=== PATIENT | male | born 1935 | race Caucasian/White ===

== ENCOUNTER 2016-12-05 08:05 | Emergency (ER) | payer MEDICARE ==
[~2016-12-05] VITALS: Ht 170.2 cm; Wt 88.6 kg
[~2016-12-05 08:05] MED LIST: /GLIM2TA PO; /PANT40TA PO; ACET50TA PO; ACTO15TA OR; ASPI81TA3 OR; COUM2.5T17 PO; FERR325T OR; FINA5TAB2 PO; GLUC1000 OR; HYDR25TA6 OR; LISI10TA4 OR; MULTIVIT PO; PERC5TAB12 PO; SIMV20TA2 OR; TERA5CAP3 OR; VITA100T OR; VITA500C OR
[2016-12-05] MEDS ORDERED: ASPIRIN 81 MG CHEW TABLET PO ONE (08:30)
[2016-12-05 08:45] LABS: BASO % 0.4 % (0.0-1.0); EOS # 0.1 10^3/uL (0.0-0.50); EOS % 1.7 % (0.0-3.0); IMMATURE GRANULOCYTE % 0.4 % (0-0); LYMPH # 1.2 10^3/uL (1.5-4.5); LYMPH % 21.7 % (24.0-44.0); MEAN CORPUSCULAR HEMOGLOBIN 31.3 pg (27.0-33.0); MEAN CORPUSCULAR HGB CONC 33.5 g/dl (32.0-36.5); MEAN CORPUSCULAR VOLUME 93.3 fl (80.0-96.0); MONO # 0.4 10^3/uL (0.0-0.8); MONO % 7.5 % (0.0-5.0); NEUTROPHILS # 3.7 10^3/uL (1.8-7.7); NEUTROPHILS % 68.3 % (36.0-66.0); PLATELET COUNT, AUTOMATED 121 10^3/uL (150-450); RED CELL DISTRIBUTION WIDTH 12.9 % (11.5-14.5); WHITE BLOOD COUNT 5.4 10^3/uL (4.0-10.0)
[2016-12-05 08:52] LABS: ADD MANUAL DIFFER NO; DIFF SLIDE NUMBER 120
--- NOTE | 2016-12-05 09:05 | REP ---
Chest x-ray: Two views. History: Chest pain. Comparison chest x-ray December 02, 2015. Findings: EKG monitoring electrodes overlie the chest. The lungs are well inflated and clear. The pleural angles are sharp. Heart size is normal. There are some degenerative changes in the thoracic spine and aorta as before. Impression: No active disease. Signed by Derick Tyson MD 12/05/2016 01:15 P
--- NOTE | 2016-12-05 09:19 | ECGEPIP ---
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
[2016-12-05 09:22] LABS: ANION GAP 6 MEQ/L (8-16); BLOOD UREA NITROGEN 17 MG/DL (7-18); CALCIUM LEVEL 9.6 MG/DL (8.8-10.2); CARBON DIOXIDE LEVEL 30 MEQ/L (21-32); CHLORIDE LEVEL 107 MEQ/L (98-107); CREATININE FOR GFR 1.38 MG/DL (0.70-1.30); GLOMERULAR FILTRATION RATE 52.9 (>42); GLUCOSE, FASTING 103 MG/DL (83-110); POTASSIUM SERUM 4.2 MEQ/L (3.5-5.1); SODIUM LEVEL 143 MEQ/L (136-145)
[2016-12-05 16:15] VITALS: BP 132/60
--- NOTE | 2016-12-05 16:17 | ECGEPIP ---
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
== END 2016-12-05 16:22 | disposition home or self-care (01) ==
LOC: M ED 08:05
DX: R07.9 Chest pain, unspecified (principal); E11.9 Type 2 diabetes mellitus without complications; I10 Essential (primary) hypertension; E78.5 Hyperlipidemia, unspecified; N40.0 Benign prostatic hyperplasia without lower urinary tract symptoms; Z79.899 Other long term (current) drug therapy; Z79.82 Long term (current) use of aspirin; Z79.84 Long term (current) use of oral hypoglycemic drugs; Z88.5 Allergy status to narcotic agent; Z87.891 Personal history of nicotine dependence

== ENCOUNTER → 2017-08-11 | Outpatient (CLI) | payer MEDICARE ==
[2017-08-11 09:04] LABS: SLIDE REVIEW Report; SOURCE PERIPHERAL SMEAR
[2017-08-11 09:05] LABS: REASON FOR REVIEW ANEMIA / RBC MORPH
[2017-08-11 09:09] LABS: BASO % 0.2 % (0.0-1.0); EOS # 0.1 10^3/uL (0.0-0.50); EOS % 3.3 % (0.0-3.0); HEMATOCRIT 33.9 % (42.0-52.0); HEMOGLOBIN 11.2 g/dl (13.5-17.5); IMMATURE GRANULOCYTE % 0.5 % (0-3.0); LYMPH # 1.6 10^3/uL (1.5-4.5); LYMPH % 36.6 % (24.0-44.0); MEAN CORPUSCULAR VOLUME 93.9 fl (80.0-96.0); MONO # 0.4 10^3/uL (0.0-0.8); MONO % 8.6 % (0.0-5.0); NEUTROPHILS # 2.2 10^3/uL (1.8-7.7); NEUTROPHILS % 50.8 % (36.0-66.0); PLATELET COUNT, AUTOMATED 125 10^3/uL (150-450); RED BLOOD COUNT 3.61 10^6/uL (4.30-6.10); RED CELL DISTRIBUTION WIDTH 12.9 % (11.5-14.5); RETIC HEMOGLOBIN EQUIVALENT 35.7 pg (24-36); RETICULOCYTE % 1.7 % (0.5-1.5); WHITE BLOOD COUNT 4.3 10^3/uL (4.0-10.0)
[2017-08-11 09:43] LABS: FERRITIN 178 NG/ML (26-388); IRON (FE) 66 UG/DL (65-175); PERCENT SATURATION 23.7 % (19.7-50.0); TOTAL IRON BINDING CAPACITY 279 UG/DL (250-450)
[2017-08-11 11:57] LABS: VITAMIN B12 LEVEL 655 PG/ML
[2017-08-11 12:00] LABS: FOLATE 12.3 NG/ML
== END ==
LOC: M LAB 07:58
DX: D64.9 Anemia, unspecified (principal)
CPT/HCPCS: 82746

== ENCOUNTER 2019-04-17 11:34 | Emergency (ER) | payer MEDICARE ==
[~2019-04-17] VITALS: Ht 170.2 cm; Wt 89.4 kg
[~2019-04-17 11:34] MED LIST changes: -/GLIM2TA PO; -/PANT40TA PO; -ACET50TA PO; +AMAR1TAB5 PO; +MAPA500T17 PO; +PROT1TAB2 PO
[2019-04-17 12:22] LABS: BASO % 0.2 % (0.0-1.0); EOS # 0.1 10^3/uL (0.0-0.5); EOS % 2.9 % (0.0-3.0); HEMATOCRIT 38.4 % (42.0-52.0); HEMOGLOBIN 12.7 g/dl (13.5-17.5); LYMPH # 1.2 10^3/uL (1.5-5.0); LYMPH % 29.4 % (24.0-44.0); MEAN CORPUSCULAR HEMOGLOBIN 31.8 pg (27.0-33.0); MEAN CORPUSCULAR HGB CONC 33.1 g/dl (32.0-36.5); MEAN CORPUSCULAR VOLUME 96.2 fl (80.0-96.0); MONO # 0.3 10^3/uL (0.0-0.8); MONO % 7.5 % (0.0-5.0); NEUTROPHILS # 2.5 10^3/uL (1.5-8.5); NEUTROPHILS % 59.5 % (36.0-66.0); PLATELET COUNT, AUTOMATED 118 10^3/uL (150-450); RED BLOOD COUNT 3.99 10^6/uL (4.30-6.10); WHITE BLOOD COUNT 4.2 10^3/uL (4.0-10.0)
[2019-04-17] MEDS ORDERED: NS 1,000 ML IV ONE ×2 (12:45→16:45)
[2019-04-17 12:53] LABS: ALBUMIN 4.1 GM/DL (3.2-5.2); BILIRUBIN,DIRECT 0.2 MG/DL (0.0-0.2); BILIRUBIN,TOTAL 0.4 MG/DL (0.2-1.0); TOTAL PROTEIN 7.1 GM/DL (6.4-8.2)
[2019-04-17 15:55] LABS: CREATININE FOR GFR 1.54 MG/DL (0.70-1.30); GLOMERULAR FILTRATION RATE 46.4 (>35)
[2019-04-17] MEDS ORDERED: ISOVUE-370 76% 100ML VIAL (Q9967) As Ordered ONE (15:57)
--- NOTE | 2019-04-17 16:34 | REP ---
Clinical: Acute left lower quadrant pain. Technique: Axial contrast enhanced images from the lung bases to the pubic symphysis with coronal and sagittal re-formations using 100 ml Isovue 370 intravenous contrast material. Comparison: 03/20/2012. Findings: Lung bases demonstrate chronic-appearing changes and mild cardiomegaly. Fatty infiltration to the liver noted along with vague scattered hyperenhancing lesions measuring up to 3 cm which are new compared to prior examination and may represent hemangiomas. A 2.3 cm hypodense lesion in the left lobe remains stable compared to prior examination and may represent cyst or hemangioma. Spleen, pancreas, gallbladder, bilateral adrenal glands are normal. The kidneys demonstrate age-related cortical atrophic changes along with 2 cm and 1.6 cm stable benign right renal cysts. No hydronephrosis noted. The enteric system demonstrates diffuse diverticulosis without acute diverticulitis. Normal terminal ileum and appendix are identified in the right lower quadrant. A moderate periumbilical hernia measuring approximately 5 cm contains mesenteric fat and nonobstructed loop of small bowel. Evaluation of the pelvis is limited due to beam-hardening artifact from left hip prosthesis and marked prostatomegaly with extension into the base of the bladder has increased from prior examination. No ascites. No free air. No adenopathy. Atherosclerotic changes to the aorta and vasculature without aneurysm or dissection. Osseous structures demonstrate degenerative changes. Impression: 1. Hepatic lesions as described above likely representing hemangiomas and/or cyst. Consider follow-up ultrasound examination for confirmation. 2. Diverticulosis without acute diverticulitis. 3. Periumbilical hernia containing mesenteric fat and nonobstructed small bowel. 4. Marked prostatomegaly with mass effect/extension into the base of the bladder increased from prior examination. 5. Further nonacute findings as above. Electronically Signed by Mars Brown MD 04/17/2019 04:26 P
[2019-04-17 18:09] VITALS: BP 162/72
--- NOTE | 2019-04-18 07:11 | ED PDOC ---
Post-Departure Follow-Up radiology rpeort faxed to Carmen Flores MD Apr 18, 2019 07:11
== END 2019-04-17 18:10 | disposition home or self-care (01) ==
LOC: M ED 11:34
DX: E86.0 Dehydration (principal); E11.9 Type 2 diabetes mellitus without complications; I10 Essential (primary) hypertension; E78.5 Hyperlipidemia, unspecified; N40.0 Benign prostatic hyperplasia without lower urinary tract symptoms; Z79.899 Other long term (current) drug therapy; Z79.84 Long term (current) use of oral hypoglycemic drugs; Z88.5 Allergy status to narcotic agent; Z87.891 Personal history of nicotine dependence
CPT/HCPCS: 74177; 80047; 80076; 81001; 82565; 83690; 84520; 85025; 96360; 96361; 99284; Q9967

== ENCOUNTER → 2021-10-05 | Outpatient (CLI) | payer MEDICARE ==
[~2021-10-05] MED LIST changes: +CYAN500T14 PO; +FERR325T3 PO; +GLIM2TAB4 PO; +LISI10TA22 PO; +METF500T13 PO; +SIMV20TA22 PO; +TERA10CA3 PO; +VITA-243 PO; +VITMTA PO
== END ==
LOC: M LABSMTC 11:22
PROVIDERS: ATTEND Anesthesiology
DX: Z11.52 Encounter for screening for COVID-19 (principal)

== ENCOUNTER 2021-10-08 07:31 | Day surgery (SDC) | payer MEDICARE ==
[~2021-10-08] VITALS: Ht 167.6 cm; Wt 90.8 kg
[~2021-10-08 07:31] MED LIST changes: +BSS IRR 500ML/OMIDRIA 4ML IRR BAG (OR ONLY) As Ordered ONE; +CEFUROXIME 1MG/0.1ML INTRACAMERAL INJ As Ordered ONE; +LIDOCAINE 1% SDV 5ML VIAL As Ordered ONE; +PROPARACAINE 0.5% OPHTH SOL 15ML OS ONE
[2021-10-08] MEDS: TROPICAMIDE 1% OPHTH SOLN 2ML OS SCH ×2 (08:01→08:28)
[2021-10-08] MEDS: OFLOXACIN 0.3 % (OCUFLOX) OPTH SOL 5ML OS SCH ×2 (08:01→08:28)
[2021-10-08] MEDS: PHENYLEPHRINE 2.5% OPHTH SOL 2ML OS SCH ×2 (08:01→08:28)
[2021-10-08] MEDS ORDERED: fentaNYL 100 MCG/2 ML INJECTION As Ordered ONE (09:30)
[2021-10-08] MEDS ORDERED: MIDAZOLAM INJ 2MG/2ML VIAL (J2250 PER 1MG) As Ordered ONE (09:30)
[2021-10-08] MEDS ORDERED: ePHEDrine SULFATE 25 MG/5 ML(5MG/ML) SYRINGE As Ordered ONE (10:02)
[2021-10-08 11:10] VITALS: BP 149/69
== END 2021-10-08 11:15 | disposition home or self-care (01) ==
LOC: M SDC 07:31
PROVIDERS: ATTEND Ophthalmology
DX: H25.12 Age-related nuclear cataract, left eye (principal); I10 Essential (primary) hypertension; E78.5 Hyperlipidemia, unspecified; E11.9 Type 2 diabetes mellitus without complications; N40.0 Benign prostatic hyperplasia without lower urinary tract symptoms; Z79.899 Other long term (current) drug therapy; Z88.5 Allergy status to narcotic agent; Z79.84 Long term (current) use of oral hypoglycemic drugs
CPT/HCPCS: 66984; J0697; J1097; J2250; J3010; V2632

== ENCOUNTER → 2021-11-23 | Outpatient (CLI) | payer MEDICARE ==
[~2021-11-23] MED LIST changes: -BSS IRR 500ML/OMIDRIA 4ML IRR BAG (OR ONLY) As Ordered ONE; -CEFUROXIME 1MG/0.1ML INTRACAMERAL INJ As Ordered ONE; -LIDOCAINE 1% SDV 5ML VIAL As Ordered ONE; -PROPARACAINE 0.5% OPHTH SOL 15ML OS ONE
== END ==
LOC: M LABSMTC 09:33
PROVIDERS: ATTEND Anesthesiology
DX: Z11.52 Encounter for screening for COVID-19 (principal)

== ENCOUNTER 2021-11-26 06:16 | Day surgery (SDC) | payer MEDICARE ==
[~2021-11-26] VITALS: Ht 170.2 cm; Wt 89.8 kg
[~2021-11-26 06:16] MED LIST changes: +OFLOXACIN 0.3 % (OCUFLOX) OPTH SOL 5ML OD SCH; +PHENYLEPHRINE 2.5% OPHTH SOL 2ML OD SCH; +PROPARACAINE 0.5% OPHTH SOL 15ML OD ONE; +TROPICAMIDE 1% OPHTH SOLN 2ML OD SCH
[2021-11-26] MEDS ORDERED: LIDOCAINE 1% SDV 5ML VIAL As Ordered ONE (06:29)
[2021-11-26] MEDS ORDERED: CEFUROXIME 1MG/0.1ML INTRACAMERAL INJ As Ordered ONE (06:31)
[2021-11-26] MEDS ORDERED: BSS IRR 500ML/OMIDRIA 4ML IRR BAG (OR ONLY) As Ordered ONE (06:44)
[2021-11-26] MEDS ORDERED: fentaNYL 100 MCG/2 ML INJECTION As Ordered ONE (07:32)
[2021-11-26] MEDS ORDERED: MIDAZOLAM INJ 2MG/2ML VIAL (J2250 PER 1MG) As Ordered ONE (07:32)
[2021-11-26 07:58] VITALS: BP 113/59
== END 2021-11-26 08:14 | disposition home or self-care (01) ==
LOC: M SDC 06:16
PROVIDERS: ATTEND Ophthalmology
DX: H25.11 Age-related nuclear cataract, right eye (principal); Z88.5 Allergy status to narcotic agent
CPT/HCPCS: 66984; J0697; J1097; J2250; J3010; V2632

== ENCOUNTER 2021-12-09 19:48 | Emergency (ER) | payer MEDICARE ==
[~2021-12-09] VITALS: Ht 170.2 cm; Wt 43.2 kg
[~2021-12-09 19:48] MED LIST changes: -OFLOXACIN 0.3 % (OCUFLOX) OPTH SOL 5ML OD SCH; -PHENYLEPHRINE 2.5% OPHTH SOL 2ML OD SCH; -PROPARACAINE 0.5% OPHTH SOL 15ML OD ONE; -TROPICAMIDE 1% OPHTH SOLN 2ML OD SCH
[2021-12-09 20:40] LABS: BASO % 0.3 % (0.0-1.0); EOS # 0.1 10^3/uL (0.0-0.5); EOS % 2.1 % (0.0-3.0); HEMATOCRIT 34.7 % (42.0-52.0); HEMOGLOBIN 11.4 g/dl (13.5-17.5); LYMPH # 0.6 10^3/uL (1.5-5.0); LYMPH % 19.3 % (24.0-44.0); MEAN CORPUSCULAR HEMOGLOBIN 32.5 pg (27.0-33.0); MEAN CORPUSCULAR HGB CONC 32.9 g/dl (32.0-36.5); MEAN CORPUSCULAR VOLUME 98.9 fl (80.0-96.0); MONO # 0.3 10^3/uL (0.0-0.8); NEUTROPHILS # 2.3 10^3/uL (1.5-8.5); PLATELET COUNT, AUTOMATED 112 10^3/uL (150-450); RED BLOOD COUNT 3.51 10^6/uL (4.30-6.10); WHITE BLOOD COUNT 3.3 10^3/uL (4.0-10.0)
[2021-12-09 21:11] LABS: ALBUMIN 3.3 GM/DL (3.2-5.2); BILIRUBIN,DIRECT 0.2 MG/DL (0.0-0.2); BILIRUBIN,TOTAL 0.5 MG/DL (0.2-1.0); CALCIUM LEVEL 8.8 MG/DL (8.8-10.2); CREATININE FOR GFR 1.92 MG/DL (0.70-1.30); GLOMERULAR FILTRATION RATE 35.7 (>35); POTASSIUM SERUM 4.7 MEQ/L (3.5-5.1); TOTAL PROTEIN 6.7 GM/DL (6.4-8.2)
[2021-12-09 21:19] LABS: CPK CREATINE PHOSPHOKINASE 169 U/L (39-308)
[2021-12-09] MEDS: GASTROGRAFIN SOLUTION 30ML PO SCH ×2 (21:40→22:18)
[2021-12-09 22:32] LABS: CPK CREATINE PHOSPHOKINASE 155 U/L (39-308)
[2021-12-09] MEDS ORDERED: GI COCKTAIL 50ML BTL(HYOSCYAMINE/MAALOX/LIDOCAINE VISCOUS)(1:3:1) PO ONE (23:35)
[2021-12-09 23:41] VITALS: BP 169/79
[2021-12-10] MEDS ORDERED: AUGMENTIN 500MG TAB PO ONE (01:15)
[2021-12-10] MEDS ORDERED: AUGM500T34 PO (01:16)
[2021-12-10 01:57] VITALS: BP 147/73
== END 2021-12-10 01:59 | disposition home or self-care (01) ==
LOC: M ED 19:48
DX: R07.9 Chest pain, unspecified (principal); R10.9 Unspecified abdominal pain; J43.9 Emphysema, unspecified; R91.8 Other nonspecific abnormal finding of lung field; K57.32 Diverticulitis of large intestine without perforation or abscess without bleeding; I11.9 Hypertensive heart disease without heart failure; I25.119 Atherosclerotic heart disease of native coronary artery with unspecified angina pectoris; I77.819 Aortic ectasia, unspecified site; Z79.84 Long term (current) use of oral hypoglycemic drugs; E78.5 Hyperlipidemia, unspecified; K21.9 Gastro-esophageal reflux disease without esophagitis; N18.9 Chronic kidney disease, unspecified; Z88.5 Allergy status to narcotic agent
CPT/HCPCS: 36415; 71045; 71250; 74176; 80047; 80048; 80076; 82550; 83690; 83880; 84484; 85025; 93005; 93041; 94760; 99285; Q9963

== ENCOUNTER → 2022-01-24 | Outpatient (CLI) | payer MEDICARE ==
[~2022-01-24] MED LIST changes: +AUGM500T34 PO
== END ==
LOC: M PLAIMG 13:03
PROVIDERS: ATTEND Family Medicine
DX: K57.30 Diverticulosis of large intestine without perforation or abscess without bleeding (principal); R16.1 Splenomegaly, not elsewhere classified; N28.1 Cyst of kidney, acquired; R18.8 Other ascites

== ENCOUNTER 2022-02-15 10:31 | Inpatient (IN) | payer MEDICARE ==
[~2022-02-15] VITALS: Ht 170.2 cm; Wt 89.2 kg
[2022-02-15] MEDS ORDERED: JARD1TAB PO (10:43)
[2022-02-15] MEDS ORDERED: NS 500 ML IV ONE (12:45)
[2022-02-15 13:01] LABS: RSV AMPLIFICATION NEGATIVE (NEGATIVE)
[2022-02-15 13:23] LABS: BASO % 0.3 % (0.0-1.0); EOS # 0.1 10^3/uL (0.0-0.5); EOS % 1.4 % (0.0-3.0); HEMATOCRIT 36.1 % (42.0-52.0); HEMOGLOBIN 11.1 g/dl (13.5-17.5); LYMPH # 0.4 10^3/uL (1.5-5.0); LYMPH % 12.5 % (24.0-44.0); MEAN CORPUSCULAR HEMOGLOBIN 30.1 pg (27.0-33.0); MEAN CORPUSCULAR HGB CONC 30.7 g/dl (32.0-36.5); MEAN CORPUSCULAR VOLUME 97.8 fl (80.0-96.0); MONO # 0.3 10^3/uL (0.0-0.8); MONO % 8.2 % (2.0-8.0); NEUTROPHILS # 2.7 10^3/uL (1.5-8.5); PLATELET COUNT, AUTOMATED 153 10^3/uL (150-450); RED BLOOD COUNT 3.69 10^6/uL (4.30-6.10); WHITE BLOOD COUNT 3.5 10^3/uL (4.0-10.0)
[2022-02-15 13:46] LABS: CK-MB VALUE MASS 1.6 NG/ML (<3.6)
[2022-02-15 13:47] LABS: ALBUMIN 2.7 G/DL (3.2-5.2); BILIRUBIN,DIRECT 0.4 MG/DL (<0.4); BILIRUBIN,TOTAL 0.7 MG/DL (0.3-1.2); CALCIUM LEVEL 8.4 MG/DL (8.3-10.6); CREATININE FOR GFR 1.78 MG/DL (0.70-1.30); MB/CK RELATIVE INDEX 1.26 (< OR =4); POTASSIUM SERUM 4.4 MMOL/L (3.5-5.1); TOTAL PROTEIN 6.2 G/DL (5.7-8.2)
[2022-02-15] MEDS ORDERED: ISOVUE-370 76% 100ML VIAL As Ordered ONE (13:59)
[2022-02-15] MEDS ORDERED: NS 1,000 ML IV ONE (14:00)
[2022-02-15] MEDS ORDERED: VANCOMYCIN ORAL SOL 250MG/5ML ORAL SYRINGE PO ONE (15:55)
[2022-02-15 16:08] LABS: CK-MB VALUE MASS 1.4 NG/ML (<3.6)
[2022-02-15 16:09] LABS: MB/CK RELATIVE INDEX 1.25 (< OR =4)
[2022-02-15 17:22] LABS: INR 1.23; PROTHROMBIN TIME 15.8 SECONDS (12.5-14.5)
[2022-02-15] MEDS: INSULIN LISPRO (NovoLOG) PER UNIT SC SCH ×2 (17:30→21:00)
[2022-02-15] MEDS ORDERED: DEXTROSE 50% 50ML SYRINGE IV PRN (17:45)
[2022-02-15] MEDS ORDERED: GLUCAGON INJ 1MG VIAL SC PRN (17:45)
[2022-02-15] MEDS ORDERED: GLUCOSE 4GM CHEW TABLET PO PRN (17:45)
[2022-02-15] MEDS ORDERED: HOME MED LIST COMPLETE! XX SCH (18:05)
[2022-02-15] MEDS ORDERED: TOUJ1.2I SC (18:05)
[2022-02-15 19:17] LABS: CK-MB VALUE MASS 1.4 NG/ML (<3.6)
[2022-02-15 19:19] LABS: MB/CK RELATIVE INDEX 1.23 (< OR =4)
[2022-02-15 19:39] LABS: HEPATITIS B SURFACE ANTIGEN NEGATIVE (NEGATIVE)
[2022-02-15 19:59] LABS: HEPATITIS C VIRUS ABY INDEX 0.1 INDEX (<0.8)
[2022-02-15 20:00] LABS: HEPATITIS B CORE ANTIBODY IGM NEGATIVE (NEGATIVE)
[2022-02-15] MEDS: ASCORBIC ACID 500 MG TAB PO SCH (21:58)
[2022-02-15] MEDS: CYANOCOBALAMIN 500 MCG TAB PO SCH (21:58)
[2022-02-15] MEDS: FERROUS SULFATE 325MG TAB PO SCH (21:59)
[2022-02-15] MEDS: SIMVASTATIN 20 MG TAB PO SCH (21:59)
[2022-02-15 23:47] VITALS: BP 146/85
[2022-02-16] MEDS: TERAZOSIN 5MG CAPSULE PO SCH ×2 (00:12→20:12)
[2022-02-16] MEDS: VANCOMYCIN ORAL SOL 250MG/5ML ORAL SYRINGE PO SCH ×5 (00:38→23:40)
[2022-02-16] MEDS ORDERED: NYSTATIN 100,000 UNITS/GM TOPICAL PWD 15GM TOP PRN (00:45)
[2022-02-16 04:40] VITALS: BP 107/69
[2022-02-16 06:16] LABS: HEMATOCRIT 34.8 % (42.0-52.0); MEAN CORPUSCULAR HEMOGLOBIN 30.3 pg (27.0-33.0); MEAN CORPUSCULAR HGB CONC 31.6 g/dl (32.0-36.5); MEAN CORPUSCULAR VOLUME 95.9 fl (80.0-96.0); PLATELET COUNT, AUTOMATED 161 10^3/uL (150-450); RED BLOOD COUNT 3.63 10^6/uL (4.30-6.10); WHITE BLOOD COUNT 3.7 10^3/uL (4.0-10.0)
[2022-02-16 06:28] LABS: ALBUMIN 2.4 G/DL (3.2-5.2); BILIRUBIN,TOTAL 0.6 MG/DL (0.3-1.2); CALCIUM LEVEL 8.4 MG/DL (8.3-10.6); CREATININE FOR GFR 1.64 MG/DL (0.70-1.30); GLOMERULAR FILTRATION RATE 42.8 (>35); POTASSIUM SERUM 4.2 MMOL/L (3.5-5.1); TOTAL PROTEIN 5.8 G/DL (5.7-8.2)
[2022-02-16] MEDS: INSULIN LISPRO (NovoLOG) PER UNIT SC SCH ×4 (07:30→20:04)
[2022-02-16] MEDS: LACTOBACILLUS ACIDOPHILUS CAP (BACID) PO SCH (09:52)
[2022-02-16] MEDS: FERROUS SULFATE 325MG TAB PO SCH ×2 (09:53→20:13)
[2022-02-16] MEDS: ASCORBIC ACID 500 MG TAB PO SCH ×2 (09:53→20:13)
[2022-02-16] MEDS: FINASTERIDE 5MG TAB PO SCH (09:53)
[2022-02-16] MEDS: MULTIVITAMINS/MINERALS THERAP 1 TAB PO SCH (09:53)
[2022-02-16] MEDS: CYANOCOBALAMIN 500 MCG TAB PO SCH ×2 (09:53→20:13)
[2022-02-16 14:00] VITALS: BP 108/62
[2022-02-16 17:39] LABS: APPEARANCE, BODY FLUID HAZY (CLEAR); ASCITES FL COLOR PALE YELLOW (COLORLESS); SOURCE, BODY FLUID ASCITES
[2022-02-16 17:45] LABS: SOURCE, BODY FLUID ALBUMIN ASCITES
[2022-02-16 17:50] LABS: SOURCE, BODY FLUID GLUCOSE ASCITES
[2022-02-16 17:52] LABS: SOURCE, BODY FLUID TOT PROTEIN ASCITES; TOTAL PROTEIN, BODY FLUID < 2.0 G/DL (NOT ESTABLISHED)
[2022-02-16 20:00] VITALS: BP 114/68
[2022-02-16] MEDS: SIMVASTATIN 20 MG TAB PO SCH (20:13)
[2022-02-17] MEDS: VANCOMYCIN ORAL SOL 250MG/5ML ORAL SYRINGE PO SCH ×3 (05:24→17:55)
[2022-02-17 06:16] VITALS: BP 113/68
[2022-02-17 06:37] LABS: BASO % 0.3 % (0.0-1.0); EOS # 0.1 10^3/uL (0.0-0.5); EOS % 3.5 % (0.0-3.0); HEMATOCRIT 32.8 % (42.0-52.0); HEMOGLOBIN 10.4 g/dl (13.5-17.5); LYMPH # 0.5 10^3/uL (1.5-5.0); LYMPH % 16.2 % (24.0-44.0); MEAN CORPUSCULAR HGB CONC 31.7 g/dl (32.0-36.5); MEAN CORPUSCULAR VOLUME 94.5 fl (80.0-96.0); MONO # 0.3 10^3/uL (0.0-0.8); MONO % 9.8 % (2.0-8.0); NEUTROPHILS # 2.2 10^3/uL (1.5-8.5); NEUTROPHILS % 69.6 % (36.0-66.0); PLATELET COUNT, AUTOMATED 149 10^3/uL (150-450); RED BLOOD COUNT 3.47 10^6/uL (4.30-6.10); WHITE BLOOD COUNT 3.2 10^3/uL (4.0-10.0)
[2022-02-17 07:01] LABS: MAGNESIUM LEVEL 1.9 MG/DL (1.8-2.4)
[2022-02-17 07:03] LABS: ALBUMIN 2.3 G/DL (3.2-5.2); BILIRUBIN,TOTAL 0.5 MG/DL (0.3-1.2); CALCIUM LEVEL 8.2 MG/DL (8.3-10.6); CREATININE FOR GFR 1.56 MG/DL (0.70-1.30); GLOMERULAR FILTRATION RATE 45.4 (>35); POTASSIUM SERUM 3.8 MMOL/L (3.5-5.1); TOTAL PROTEIN 5.3 G/DL (5.7-8.2)
[2022-02-17] MEDS: INSULIN LISPRO (NovoLOG) PER UNIT SC SCH ×4 (10:00→20:30)
[2022-02-17] MEDS: LACTOBACILLUS ACIDOPHILUS CAP (BACID) PO SCH (10:01)
[2022-02-17] MEDS: MULTIVITAMINS/MINERALS THERAP 1 TAB PO SCH (10:01)
[2022-02-17] MEDS: ASCORBIC ACID 500 MG TAB PO SCH ×2 (10:01→21:16)
[2022-02-17] MEDS: CYANOCOBALAMIN 500 MCG TAB PO SCH ×2 (10:01→21:16)
[2022-02-17] MEDS: FERROUS SULFATE 325MG TAB PO SCH ×2 (10:01→21:21)
[2022-02-17] MEDS: FINASTERIDE 5MG TAB PO SCH (10:01)
[2022-02-17] MEDS ORDERED: VANC1CAP6 PO (12:08)
[2022-02-17] MEDS: FUROSEMIDE 20 MG TAB PO SCH ×2 (12:44→17:54)
[2022-02-17] MEDS: SPIRONOLACTONE 25 MG TAB PO SCH ×2 (12:44→17:54)
[2022-02-17 15:00] VITALS: BP 112/67
[2022-02-17] MEDS: OCTREOTIDE ACETATE 100MCG/ML VIAL **SC ADMINISTRATION ONLY SC SCH ×2 (16:00→21:21)
[2022-02-17] MEDS: SIMVASTATIN 20 MG TAB PO SCH (21:16)
[2022-02-17 21:17] VITALS: BP 103/63
[2022-02-17] MEDS: TERAZOSIN 5MG CAPSULE PO SCH (21:18)
[2022-02-18] MEDS: VANCOMYCIN ORAL SOL 250MG/5ML ORAL SYRINGE PO SCH ×5 (00:08→23:26)
[2022-02-18] MEDS: OCTREOTIDE ACETATE 100MCG/ML VIAL **SC ADMINISTRATION ONLY SC SCH ×3 (05:48→21:03)
[2022-02-18 05:50] VITALS: BP 102/66
[2022-02-18 06:45] LABS: EOS # 0.1 10^3/uL (0.0-0.5); EOS % 3.1 % (0.0-3.0); HEMATOCRIT 33.2 % (42.0-52.0); HEMOGLOBIN 10.5 g/dl (13.5-17.5); LYMPH # 0.6 10^3/uL (1.5-5.0); LYMPH % 19.5 % (24.0-44.0); MEAN CORPUSCULAR HEMOGLOBIN 30.3 pg (27.0-33.0); MEAN CORPUSCULAR HGB CONC 31.6 g/dl (32.0-36.5); MONO # 0.3 10^3/uL (0.0-0.8); MONO % 10.1 % (2.0-8.0); NEUTROPHILS # 1.9 10^3/uL (1.5-8.5); PLATELET COUNT, AUTOMATED 147 10^3/uL (150-450); RED BLOOD COUNT 3.46 10^6/uL (4.30-6.10); WHITE BLOOD COUNT 2.9 10^3/uL (4.0-10.0)
[2022-02-18 07:02] LABS: MAGNESIUM LEVEL 1.9 MG/DL (1.8-2.4)
[2022-02-18 07:04] LABS: ALBUMIN 2.6 G/DL (3.2-5.2); BILIRUBIN,TOTAL 0.7 MG/DL (0.3-1.2); CREATININE FOR GFR 1.79 MG/DL (0.70-1.30); GLOMERULAR FILTRATION RATE 38.7 (>35); POTASSIUM SERUM 4.2 MMOL/L (3.5-5.1); TOTAL PROTEIN 5.4 G/DL (5.7-8.2)
[2022-02-18] MEDS: INSULIN LISPRO (NovoLOG) PER UNIT SC SCH ×4 (08:38→20:51)
[2022-02-18] MEDS: CYANOCOBALAMIN 500 MCG TAB PO SCH ×2 (08:39→21:02)
[2022-02-18] MEDS: ASCORBIC ACID 500 MG TAB PO SCH ×2 (08:39→21:03)
[2022-02-18] MEDS: FERROUS SULFATE 325MG TAB PO SCH ×2 (08:39→21:03)
[2022-02-18] MEDS: LACTOBACILLUS ACIDOPHILUS CAP (BACID) PO SCH (08:39)
[2022-02-18] MEDS: FUROSEMIDE 20 MG TAB PO SCH ×2 (08:39→17:23)
[2022-02-18] MEDS: SPIRONOLACTONE 25 MG TAB PO SCH ×2 (08:40→17:23)
[2022-02-18] MEDS: MULTIVITAMINS/MINERALS THERAP 1 TAB PO SCH (08:40)
[2022-02-18] MEDS: FINASTERIDE 5MG TAB PO SCH (08:41)
[2022-02-18] MEDS ORDERED: LIDOCAINE 1% MDV 20ML VIAL As Ordered ONE (11:19)
[2022-02-18 14:00] VITALS: BP 106/66
[2022-02-18 20:00] VITALS: BP 103/65
[2022-02-18] MEDS: TERAZOSIN 5MG CAPSULE PO SCH (21:00)
[2022-02-18] MEDS: SIMVASTATIN 20 MG TAB PO SCH (21:03)
[2022-02-19] MEDS: VANCOMYCIN ORAL SOL 250MG/5ML ORAL SYRINGE PO SCH ×3 (05:50→18:07)
[2022-02-19] MEDS: OCTREOTIDE ACETATE 100MCG/ML VIAL **SC ADMINISTRATION ONLY SC SCH ×3 (05:54→21:15)
[2022-02-19 06:00] VITALS: BP 110/66
[2022-02-19 07:51] LABS: EOS # 0.1 10^3/uL (0.0-0.5); EOS % 2.7 % (0.0-3.0); HEMATOCRIT 35.8 % (42.0-52.0); HEMOGLOBIN 11.4 g/dl (13.5-17.5); LYMPH # 0.7 10^3/uL (1.5-5.0); LYMPH % 22.6 % (24.0-44.0); MEAN CORPUSCULAR HEMOGLOBIN 30.3 pg (27.0-33.0); MEAN CORPUSCULAR HGB CONC 31.8 g/dl (32.0-36.5); MEAN CORPUSCULAR VOLUME 95.2 fl (80.0-96.0); MONO # 0.3 10^3/uL (0.0-0.8); MONO % 9.3 % (2.0-8.0); NEUTROPHILS % 65.1 % (36.0-66.0); PLATELET COUNT, AUTOMATED 141 10^3/uL (150-450); RED BLOOD COUNT 3.76 10^6/uL (4.30-6.10)
[2022-02-19 07:59] LABS: MAGNESIUM LEVEL 1.9 MG/DL (1.8-2.4)
[2022-02-19] MEDS: CYANOCOBALAMIN 500 MCG TAB PO SCH ×2 (08:13→21:15)
[2022-02-19] MEDS: MULTIVITAMINS/MINERALS THERAP 1 TAB PO SCH (08:13)
[2022-02-19] MEDS: ASCORBIC ACID 500 MG TAB PO SCH ×2 (08:15→21:15)
[2022-02-19] MEDS: FERROUS SULFATE 325MG TAB PO SCH ×2 (08:15→21:15)
[2022-02-19] MEDS: LACTOBACILLUS ACIDOPHILUS CAP (BACID) PO SCH (08:16)
[2022-02-19] MEDS: FINASTERIDE 5MG TAB PO SCH (08:16)
[2022-02-19 08:20] VITALS: BP 97/53
[2022-02-19 08:29] LABS: ALBUMIN 2.7 G/DL (3.2-5.2); BILIRUBIN,TOTAL 0.8 MG/DL (0.3-1.2); CALCIUM LEVEL 8.2 MG/DL (8.3-10.6); CREATININE FOR GFR 1.91 MG/DL (0.70-1.30); GLOMERULAR FILTRATION RATE 35.9 (>35); POTASSIUM SERUM 3.8 MMOL/L (3.5-5.1); TOTAL PROTEIN 5.8 G/DL (5.7-8.2)
[2022-02-19] MEDS: FUROSEMIDE 20 MG TAB PO SCH ×2 (08:42→18:06)
[2022-02-19] MEDS: INSULIN LISPRO (NovoLOG) PER UNIT SC SCH ×4 (08:42→21:00)
[2022-02-19] MEDS: SPIRONOLACTONE 25 MG TAB PO SCH ×2 (08:42→17:00)
[2022-02-19 20:00] VITALS: BP 120/78
[2022-02-19] MEDS: SIMVASTATIN 20 MG TAB PO SCH (21:15)
[2022-02-19 21:16] VITALS: BP 119/77
[2022-02-19] MEDS: TERAZOSIN 5MG CAPSULE PO SCH (21:37)
[2022-02-20] MEDS: VANCOMYCIN ORAL SOL 250MG/5ML ORAL SYRINGE PO SCH ×4 (00:20→19:29)
[2022-02-20] MEDS: OCTREOTIDE ACETATE 100MCG/ML VIAL **SC ADMINISTRATION ONLY SC SCH ×3 (05:31→20:49)
[2022-02-20 06:00] VITALS: BP 104/58
[2022-02-20 06:35] LABS: BASO % 0.3 % (0.0-1.0); EOS # 0.1 10^3/uL (0.0-0.5); EOS % 2.8 % (0.0-3.0); HEMATOCRIT 34.4 % (42.0-52.0); HEMOGLOBIN 10.9 g/dl (13.5-17.5); LYMPH # 0.7 10^3/uL (1.5-5.0); LYMPH % 19.8 % (24.0-44.0); MEAN CORPUSCULAR HEMOGLOBIN 29.5 pg (27.0-33.0); MEAN CORPUSCULAR HGB CONC 31.7 g/dl (32.0-36.5); MEAN CORPUSCULAR VOLUME 93.2 fl (80.0-96.0); MONO # 0.3 10^3/uL (0.0-0.8); MONO % 9.5 % (2.0-8.0); NEUTROPHILS # 2.4 10^3/uL (1.5-8.5); NEUTROPHILS % 67.3 % (36.0-66.0); PLATELET COUNT, AUTOMATED 144 10^3/uL (150-450); RED BLOOD COUNT 3.69 10^6/uL (4.30-6.10); WHITE BLOOD COUNT 3.6 10^3/uL (4.0-10.0)
[2022-02-20 07:04] LABS: MAGNESIUM LEVEL 1.7 MG/DL (1.8-2.4)
[2022-02-20 07:11] LABS: ALBUMIN 2.5 G/DL (3.2-5.2); BILIRUBIN,TOTAL 0.7 MG/DL (0.3-1.2); CREATININE FOR GFR 1.97 MG/DL (0.70-1.30); GLOMERULAR FILTRATION RATE 34.7 (>35); POTASSIUM SERUM 3.9 MMOL/L (3.5-5.1); TOTAL PROTEIN 5.4 G/DL (5.7-8.2)
[2022-02-20] MEDS ORDERED: MAGNESIUM OXIDE 400MG TAB (MAG-OX) PO ONE (07:35)
[2022-02-20 08:28] VITALS: BP 86/62
[2022-02-20] MEDS: LACTOBACILLUS ACIDOPHILUS CAP (BACID) PO SCH (08:29)
[2022-02-20] MEDS: FERROUS SULFATE 325MG TAB PO SCH ×2 (08:29→20:44)
[2022-02-20] MEDS: MULTIVITAMINS/MINERALS THERAP 1 TAB PO SCH (08:29)
[2022-02-20] MEDS: FINASTERIDE 5MG TAB PO SCH (08:29)
[2022-02-20] MEDS: CYANOCOBALAMIN 500 MCG TAB PO SCH ×2 (08:29→20:44)
[2022-02-20] MEDS: ASCORBIC ACID 500 MG TAB PO SCH ×2 (08:29→20:44)
[2022-02-20] MEDS: SPIRONOLACTONE 25 MG TAB PO SCH (08:58)
[2022-02-20] MEDS: FUROSEMIDE 20 MG TAB PO SCH (09:10)
[2022-02-20] MEDS: MIDODRINE 2.5 MG TAB PO SCH ×2 (09:10→14:12)
[2022-02-20] MEDS: INSULIN LISPRO (NovoLOG) PER UNIT SC SCH ×4 (10:48→20:20)
[2022-02-20 10:51] VITALS: BP 94/54
[2022-02-20 14:00] VITALS: BP 118/66
[2022-02-20 20:00] VITALS: BP 116/65
[2022-02-20 20:44] VITALS: BP 116/65
[2022-02-20] MEDS: SIMVASTATIN 20 MG TAB PO SCH (20:44)
[2022-02-20] MEDS: TERAZOSIN 5MG CAPSULE PO SCH (20:44)
[2022-02-21] MEDS: VANCOMYCIN ORAL SOL 250MG/5ML ORAL SYRINGE PO SCH ×5 (00:24→23:09)
[2022-02-21 06:00] VITALS: BP 115/67
[2022-02-21 06:13] LABS: BASO % 0.3 % (0.0-1.0); EOS # 0.1 10^3/uL (0.0-0.5); EOS % 2.9 % (0.0-3.0); HEMATOCRIT 36.2 % (42.0-52.0); HEMOGLOBIN 11.6 g/dl (13.5-17.5); LYMPH # 0.9 10^3/uL (1.5-5.0); LYMPH % 23.8 % (24.0-44.0); MEAN CORPUSCULAR HEMOGLOBIN 29.8 pg (27.0-33.0); MEAN CORPUSCULAR VOLUME 93.1 fl (80.0-96.0); MONO # 0.4 10^3/uL (0.0-0.8); MONO % 9.2 % (2.0-8.0); NEUTROPHILS # 2.4 10^3/uL (1.5-8.5); NEUTROPHILS % 63.5 % (36.0-66.0); PLATELET COUNT, AUTOMATED 141 10^3/uL (150-450); RED BLOOD COUNT 3.89 10^6/uL (4.30-6.10); WHITE BLOOD COUNT 3.8 10^3/uL (4.0-10.0)
[2022-02-21] MEDS: OCTREOTIDE ACETATE 100MCG/ML VIAL **SC ADMINISTRATION ONLY SC SCH ×3 (06:27→23:08)
[2022-02-21 06:33] LABS: MAGNESIUM LEVEL 1.9 MG/DL (1.8-2.4)
[2022-02-21 06:35] LABS: ALBUMIN 2.6 G/DL (3.2-5.2); BILIRUBIN,TOTAL 0.8 MG/DL (0.3-1.2); CALCIUM LEVEL 8.1 MG/DL (8.3-10.6); CREATININE FOR GFR 2.12 MG/DL (0.70-1.30); GLOMERULAR FILTRATION RATE 31.8 (>35); POTASSIUM SERUM 3.9 MMOL/L (3.5-5.1); TOTAL PROTEIN 5.6 G/DL (5.7-8.2)
[2022-02-21] MEDS: MIDODRINE 2.5 MG TAB PO SCH ×2 (09:06→15:16)
[2022-02-21] MEDS: INSULIN LISPRO (NovoLOG) PER UNIT SC SCH ×4 (09:07→20:10)
[2022-02-21] MEDS: LACTOBACILLUS ACIDOPHILUS CAP (BACID) PO SCH (09:07)
[2022-02-21] MEDS: FINASTERIDE 5MG TAB PO SCH (09:07)
[2022-02-21] MEDS: MULTIVITAMINS/MINERALS THERAP 1 TAB PO SCH (09:07)
[2022-02-21] MEDS: FERROUS SULFATE 325MG TAB PO SCH ×2 (09:07→20:16)
[2022-02-21] MEDS: ASCORBIC ACID 500 MG TAB PO SCH ×2 (09:07→20:16)
[2022-02-21] MEDS: CYANOCOBALAMIN 500 MCG TAB PO SCH ×2 (09:07→20:16)
[2022-02-21] MEDS: HEPARIN SOD (PORCINE) 5000UNITS/ML 1ML VIAL/SYRINGE SQ SCH ×2 (10:00→23:08)
[2022-02-21 14:00] VITALS: BP 115/67
[2022-02-21] MEDS ORDERED: SODIUM BICARBONATE 150 MEQ in STERILE WATER LITER BAG 1,000 ML IV SCH (14:00)
[2022-02-21] MEDS: ACETAMINOPHEN TAB 650MG DOSE (2X325MG) PO PRN (15:17)
[2022-02-21 20:00] VITALS: BP 104/57
[2022-02-21] MEDS: TAMSULOSIN 0.4 MG CAP PO SCH (20:16)
[2022-02-21] MEDS: SIMVASTATIN 20 MG TAB PO SCH (20:16)
[2022-02-22 06:00] VITALS: BP 102/69
[2022-02-22] MEDS: VANCOMYCIN ORAL SOL 250MG/5ML ORAL SYRINGE PO SCH ×4 (06:14→23:27)
[2022-02-22] MEDS: OCTREOTIDE ACETATE 100MCG/ML VIAL **SC ADMINISTRATION ONLY SC SCH ×3 (06:15→21:22)
[2022-02-22 08:26] LABS: BASO % 0.3 % (0.0-1.0); EOS # 0.1 10^3/uL (0.0-0.5); EOS % 2.3 % (0.0-3.0); HEMATOCRIT 35.4 % (42.0-52.0); HEMOGLOBIN 11.3 g/dl (13.5-17.5); LYMPH # 0.8 10^3/uL (1.5-5.0); MEAN CORPUSCULAR HEMOGLOBIN 29.7 pg (27.0-33.0); MEAN CORPUSCULAR HGB CONC 31.9 g/dl (32.0-36.5); MEAN CORPUSCULAR VOLUME 93.2 fl (80.0-96.0); MONO # 0.4 10^3/uL (0.0-0.8); MONO % 8.8 % (2.0-8.0); NEUTROPHILS # 2.7 10^3/uL (1.5-8.5); NEUTROPHILS % 67.3 % (36.0-66.0); PLATELET COUNT, AUTOMATED 130 10^3/uL (150-450)
[2022-02-22 08:50] LABS: ALBUMIN 2.6 G/DL (3.2-5.2); BILIRUBIN,TOTAL 0.9 MG/DL (0.3-1.2); CALCIUM LEVEL 8.2 MG/DL (8.3-10.6); CREATININE FOR GFR 2.37 MG/DL (0.70-1.30); POTASSIUM SERUM 3.9 MMOL/L (3.5-5.1); TOTAL PROTEIN 5.6 G/DL (5.7-8.2)
[2022-02-22] MEDS: INSULIN LISPRO (NovoLOG) PER UNIT SC SCH ×4 (09:39→21:00)
[2022-02-22] MEDS: HEPARIN SOD (PORCINE) 5000UNITS/ML 1ML VIAL/SYRINGE SQ SCH ×2 (09:40→21:22)
[2022-02-22] MEDS ORDERED: LIDOCAINE 1% MDV 20ML VIAL As Ordered ONE (09:54)
[2022-02-22] MEDS: MIDODRINE 2.5 MG TAB PO SCH ×2 (11:18→17:16)
[2022-02-22] MEDS: CYANOCOBALAMIN 500 MCG TAB PO SCH ×2 (11:18→21:23)
[2022-02-22] MEDS: LACTOBACILLUS ACIDOPHILUS CAP (BACID) PO SCH (11:18)
[2022-02-22] MEDS: MULTIVITAMINS/MINERALS THERAP 1 TAB PO SCH (11:18)
[2022-02-22] MEDS: FERROUS SULFATE 325MG TAB PO SCH ×2 (11:18→21:23)
[2022-02-22] MEDS: ASCORBIC ACID 500 MG TAB PO SCH ×2 (11:19→21:23)
[2022-02-22] MEDS: FINASTERIDE 5MG TAB PO SCH (11:19)
[2022-02-22 14:00] VITALS: BP 120/71
[2022-02-22 19:40] VITALS: BP 123/74
[2022-02-22 19:47] VITALS: BP 122/72
[2022-02-22] MEDS: TAMSULOSIN 0.4 MG CAP PO SCH (21:22)
[2022-02-22] MEDS: SIMVASTATIN 20 MG TAB PO SCH (21:23)
[2022-02-22 21:31] VITALS: BP 122/72
[2022-02-23] MEDS: OCTREOTIDE ACETATE 100MCG/ML VIAL **SC ADMINISTRATION ONLY SC SCH ×3 (06:10→21:04)
[2022-02-23] MEDS: VANCOMYCIN ORAL SOL 250MG/5ML ORAL SYRINGE PO SCH ×3 (06:10→17:46)
[2022-02-23 06:36] LABS: BASO % 0.3 % (0.0-1.0); EOS # 0.1 10^3/uL (0.0-0.5); EOS % 2.3 % (0.0-3.0); HEMATOCRIT 36.8 % (42.0-52.0); HEMOGLOBIN 11.7 g/dl (13.5-17.5); LYMPH # 0.6 10^3/uL (1.5-5.0); LYMPH % 16.5 % (24.0-44.0); MEAN CORPUSCULAR HEMOGLOBIN 29.7 pg (27.0-33.0); MEAN CORPUSCULAR HGB CONC 31.8 g/dl (32.0-36.5); MEAN CORPUSCULAR VOLUME 93.4 fl (80.0-96.0); MONO # 0.3 10^3/uL (0.0-0.8); MONO % 7.8 % (2.0-8.0); NEUTROPHILS # 2.5 10^3/uL (1.5-8.5); NEUTROPHILS % 72.5 % (36.0-66.0); PLATELET COUNT, AUTOMATED 128 10^3/uL (150-450); RED BLOOD COUNT 3.94 10^6/uL (4.30-6.10); WHITE BLOOD COUNT 3.5 10^3/uL (4.0-10.0)
[2022-02-23 06:57] VITALS: BP 119/72
[2022-02-23 07:07] LABS: MAGNESIUM LEVEL 2.2 MG/DL (1.8-2.4)
[2022-02-23 07:09] LABS: ALBUMIN 2.7 G/DL (3.2-5.2); BILIRUBIN,TOTAL 0.8 MG/DL (0.3-1.2); CALCIUM LEVEL 8.1 MG/DL (8.3-10.6); CREATININE FOR GFR 2.54 MG/DL (0.70-1.30); GLOMERULAR FILTRATION RATE 25.8 (>35); POTASSIUM SERUM 4.1 MMOL/L (3.5-5.1); TOTAL PROTEIN 5.8 G/DL (5.7-8.2)
[2022-02-23] MEDS: CYANOCOBALAMIN 500 MCG TAB PO SCH ×2 (09:00→21:03)
[2022-02-23] MEDS: ASCORBIC ACID 500 MG TAB PO SCH ×2 (09:00→21:03)
[2022-02-23] MEDS: MIDODRINE 2.5 MG TAB PO SCH ×2 (09:00→17:45)
[2022-02-23] MEDS: INSULIN LISPRO (NovoLOG) PER UNIT SC SCH ×4 (09:00→21:00)
[2022-02-23] MEDS: FINASTERIDE 5MG TAB PO SCH (09:00)
[2022-02-23] MEDS: LACTOBACILLUS ACIDOPHILUS CAP (BACID) PO SCH (09:00)
[2022-02-23] MEDS: FERROUS SULFATE 325MG TAB PO SCH ×2 (09:01→21:03)
[2022-02-23] MEDS: MULTIVITAMINS/MINERALS THERAP 1 TAB PO SCH (09:01)
[2022-02-23] MEDS: HEPARIN SOD (PORCINE) 5000UNITS/ML 1ML VIAL/SYRINGE SQ SCH ×2 (09:01→21:03)
[2022-02-23] MEDS: SODIUM BICARBONATE 75 MEQ in NS 0.45% 1,000 ML IV SCH (13:23)
[2022-02-23 14:00] VITALS: BP 121/73
[2022-02-23 20:46] VITALS: BP 118/73
[2022-02-23] MEDS: TAMSULOSIN 0.4 MG CAP PO SCH (21:03)
[2022-02-23] MEDS: SIMVASTATIN 20 MG TAB PO SCH (21:03)
[2022-02-23] MEDS: ACETAMINOPHEN TAB 650MG DOSE (2X325MG) PO PRN (22:14)
[2022-02-24] MEDS: VANCOMYCIN ORAL SOL 250MG/5ML ORAL SYRINGE PO SCH ×2 (05:45)
[2022-02-24] MEDS: OCTREOTIDE ACETATE 100MCG/ML VIAL **SC ADMINISTRATION ONLY SC SCH ×3 (05:45→22:31)
[2022-02-24 05:50] VITALS: BP 123/71
[2022-02-24] MEDS: MIDODRINE 2.5 MG TAB PO SCH ×2 (08:00→17:35)
[2022-02-24 08:22] LABS: BASO % 0.3 % (0.0-1.0); EOS # 0.1 10^3/uL (0.0-0.5); HEMOGLOBIN 11.1 g/dl (13.5-17.5); LYMPH # 0.7 10^3/uL (1.5-5.0); LYMPH % 16.7 % (24.0-44.0); MEAN CORPUSCULAR HEMOGLOBIN 29.8 pg (27.0-33.0); MEAN CORPUSCULAR HGB CONC 31.7 g/dl (32.0-36.5); MEAN CORPUSCULAR VOLUME 94.1 fl (80.0-96.0); MONO # 0.3 10^3/uL (0.0-0.8); MONO % 7.3 % (2.0-8.0); NEUTROPHILS # 2.9 10^3/uL (1.5-8.5); NEUTROPHILS % 73.4 % (36.0-66.0); PLATELET COUNT, AUTOMATED 121 10^3/uL (150-450); RED BLOOD COUNT 3.72 10^6/uL (4.30-6.10)
[2022-02-24 08:45] LABS: ALBUMIN 2.5 G/DL (3.2-5.2); BILIRUBIN,TOTAL 0.8 MG/DL (0.3-1.2); CALCIUM LEVEL 7.8 MG/DL (8.3-10.6); CREATININE FOR GFR 2.43 MG/DL (0.70-1.30); GLOMERULAR FILTRATION RATE 27.2 (>35); POTASSIUM SERUM 3.7 MMOL/L (3.5-5.1); TOTAL PROTEIN 5.3 G/DL (5.7-8.2)
[2022-02-24] MEDS: LACTOBACILLUS ACIDOPHILUS CAP (BACID) PO SCH (09:52)
[2022-02-24] MEDS: FERROUS SULFATE 325MG TAB PO SCH ×2 (09:52→22:31)
[2022-02-24] MEDS: FINASTERIDE 5MG TAB PO SCH (09:53)
[2022-02-24] MEDS: FIDAXOMICIN 200 MG TAB (DIFICID) PO SCH ×2 (09:53→22:31)
[2022-02-24] MEDS: MULTIVITAMINS/MINERALS THERAP 1 TAB PO SCH (09:53)
[2022-02-24] MEDS: CYANOCOBALAMIN 500 MCG TAB PO SCH ×2 (09:53→22:32)
[2022-02-24] MEDS: ASCORBIC ACID 500 MG TAB PO SCH ×2 (09:53→22:32)
[2022-02-24] MEDS: HEPARIN SOD (PORCINE) 5000UNITS/ML 1ML VIAL/SYRINGE SQ SCH ×2 (09:54→22:30)
[2022-02-24] MEDS: SODIUM BICARBONATE 75 MEQ in NS 0.45% 1,000 ML IV SCH ×4 (09:55→22:31)
[2022-02-24] MEDS: INSULIN LISPRO (NovoLOG) PER UNIT SC SCH ×4 (10:02→21:00)
[2022-02-24] MEDS ORDERED: POTASSIUM CHLORIDE 10MEQ SR TABLET PO ONE (11:00)
[2022-02-24 14:00] VITALS: BP 121/69
[2022-02-24 22:00] VITALS: BP 118/67
[2022-02-24] MEDS: TAMSULOSIN 0.4 MG CAP PO SCH (22:31)
[2022-02-24] MEDS: SIMVASTATIN 20 MG TAB PO SCH (22:32)
[2022-02-24] MEDS: ACETAMINOPHEN TAB 650MG DOSE (2X325MG) PO PRN (23:06)
[2022-02-25 06:00] VITALS: BP 97/54
[2022-02-25] MEDS: OCTREOTIDE ACETATE 100MCG/ML VIAL **SC ADMINISTRATION ONLY SC SCH ×3 (06:09→21:11)
[2022-02-25 06:52] VITALS: BP 99/52
[2022-02-25 06:53] LABS: BASO % 0.3 % (0.0-1.0); EOS # 0.1 10^3/uL (0.0-0.5); HEMATOCRIT 34.4 % (42.0-52.0); HEMOGLOBIN 11.1 g/dl (13.5-17.5); LYMPH # 0.7 10^3/uL (1.5-5.0); LYMPH % 19.5 % (24.0-44.0); MEAN CORPUSCULAR HEMOGLOBIN 30.1 pg (27.0-33.0); MEAN CORPUSCULAR HGB CONC 32.3 g/dl (32.0-36.5); MEAN CORPUSCULAR VOLUME 93.2 fl (80.0-96.0); MONO # 0.3 10^3/uL (0.0-0.8); MONO % 8.1 % (2.0-8.0); NEUTROPHILS # 2.4 10^3/uL (1.5-8.5); NEUTROPHILS % 69.5 % (36.0-66.0); PLATELET COUNT, AUTOMATED 120 10^3/uL (150-450); RED BLOOD COUNT 3.69 10^6/uL (4.30-6.10); WHITE BLOOD COUNT 3.4 10^3/uL (4.0-10.0)
[2022-02-25 07:18] LABS: ALBUMIN 2.4 G/DL (3.2-5.2); BILIRUBIN,TOTAL 0.9 MG/DL (0.3-1.2); CALCIUM LEVEL 7.9 MG/DL (8.3-10.6); CREATININE FOR GFR 2.36 MG/DL (0.70-1.30); GLOMERULAR FILTRATION RATE 28.1 (>35); POTASSIUM SERUM 4.1 MMOL/L (3.5-5.1); TOTAL PROTEIN 5.3 G/DL (5.7-8.2)
[2022-02-25] MEDS: LACTOBACILLUS ACIDOPHILUS CAP (BACID) PO SCH (09:00)
[2022-02-25] MEDS: FINASTERIDE 5MG TAB PO SCH (09:00)
[2022-02-25] MEDS ORDERED: DIFI200T PO (09:09)
[2022-02-25] MEDS: MULTIVITAMINS/MINERALS THERAP 1 TAB PO SCH (09:19)
[2022-02-25] MEDS: FIDAXOMICIN 200 MG TAB (DIFICID) PO SCH ×2 (09:19→21:11)
[2022-02-25] MEDS: FERROUS SULFATE 325MG TAB PO SCH ×2 (09:19→21:12)
[2022-02-25] MEDS: INSULIN LISPRO (NovoLOG) PER UNIT SC SCH (09:19)
[2022-02-25] MEDS: CYANOCOBALAMIN 500 MCG TAB PO SCH ×2 (09:20→21:12)
[2022-02-25] MEDS: ASCORBIC ACID 500 MG TAB PO SCH ×2 (09:20→21:11)
[2022-02-25] MEDS: SODIUM BICARBONATE 75 MEQ in NS 0.45% 1,000 ML IV SCH (09:20)
[2022-02-25] MEDS: HEPARIN SOD (PORCINE) 5000UNITS/ML 1ML VIAL/SYRINGE SQ SCH ×2 (09:21→21:10)
[2022-02-25] MEDS: MIDODRINE 2.5 MG TAB PO SCH ×2 (09:23→17:09)
[2022-02-25] MEDS: NS 1,000 ML IV SCH ×2 (11:04→21:09)
[2022-02-25 14:00] VITALS: BP 125/76
[2022-02-25] MEDS: GLIMEPIRIDE 2 MG TAB PO SCH (14:03)
[2022-02-25 20:50] VITALS: BP 124/74
[2022-02-25] MEDS: TAMSULOSIN 0.4 MG CAP PO SCH (21:11)
[2022-02-25] MEDS: SIMVASTATIN 20 MG TAB PO SCH (21:11)
[2022-02-25] MEDS: LEVEMIR (INSULIN DETEMIR) 1 UNITS/0.01ML SC SCH (21:11)
[2022-02-26 04:50] VITALS: BP 113/59
[2022-02-26 06:30] LABS: BASO % 0.3 % (0.0-1.0); EOS # 0.1 10^3/uL (0.0-0.5); EOS % 1.4 % (0.0-3.0); HEMATOCRIT 36.4 % (42.0-52.0); HEMOGLOBIN 12.2 g/dl (13.5-17.5); LYMPH # 0.7 10^3/uL (1.5-5.0); LYMPH % 18.3 % (24.0-44.0); MEAN CORPUSCULAR HEMOGLOBIN 31.3 pg (27.0-33.0); MEAN CORPUSCULAR HGB CONC 33.5 g/dl (32.0-36.5); MEAN CORPUSCULAR VOLUME 93.3 fl (80.0-96.0); MONO # 0.3 10^3/uL (0.0-0.8); MONO % 9.4 % (2.0-8.0); NEUTROPHILS # 2.5 10^3/uL (1.5-8.5); NEUTROPHILS % 70.3 % (36.0-66.0); PLATELET COUNT, AUTOMATED 135 10^3/uL (150-450); WHITE BLOOD COUNT 3.6 10^3/uL (4.0-10.0)
[2022-02-26 06:54] LABS: ALBUMIN 2.4 G/DL (3.2-5.2); BILIRUBIN,TOTAL 0.9 MG/DL (0.3-1.2); CALCIUM LEVEL 7.8 MG/DL (8.3-10.6); CREATININE FOR GFR 2.33 MG/DL (0.70-1.30); GLOMERULAR FILTRATION RATE 28.6 (>35); POTASSIUM SERUM 3.8 MMOL/L (3.5-5.1); TOTAL PROTEIN 5.4 G/DL (5.7-8.2)
[2022-02-26] MEDS: NS 1,000 ML IV SCH ×2 (07:43→20:15)
[2022-02-26] MEDS: FIDAXOMICIN 200 MG TAB (DIFICID) PO SCH ×2 (08:54→22:07)
[2022-02-26] MEDS: LACTOBACILLUS ACIDOPHILUS CAP (BACID) PO SCH (08:54)
[2022-02-26] MEDS: ASCORBIC ACID 500 MG TAB PO SCH ×2 (08:54→22:07)
[2022-02-26] MEDS: FERROUS SULFATE 325MG TAB PO SCH ×2 (08:54→22:07)
[2022-02-26] MEDS: CYANOCOBALAMIN 500 MCG TAB PO SCH ×2 (08:54→22:06)
[2022-02-26] MEDS: MULTIVITAMINS/MINERALS THERAP 1 TAB PO SCH (08:54)
[2022-02-26] MEDS: GLIMEPIRIDE 2 MG TAB PO SCH (08:54)
[2022-02-26] MEDS: FINASTERIDE 5MG TAB PO SCH (08:54)
[2022-02-26] MEDS: HEPARIN SOD (PORCINE) 5000UNITS/ML 1ML VIAL/SYRINGE SQ SCH ×2 (08:55→22:06)
[2022-02-26] MEDS: MIDODRINE 2.5 MG TAB PO SCH ×2 (08:55→16:41)
[2022-02-26 14:00] VITALS: BP 124/74
[2022-02-26 20:40] VITALS: BP 124/58
[2022-02-26] MEDS: SIMVASTATIN 20 MG TAB PO SCH (22:06)
[2022-02-26] MEDS: LEVEMIR (INSULIN DETEMIR) 1 UNITS/0.01ML SC SCH (22:06)
[2022-02-26] MEDS: TAMSULOSIN 0.4 MG CAP PO SCH (22:07)
[2022-02-26] MEDS: GLIMEPIRIDE 1 MG TABLET PO SCH (22:07)
[2022-02-27] MEDS: ACETAMINOPHEN TAB 650MG DOSE (2X325MG) PO PRN ×2 (01:26→13:10)
[2022-02-27 05:30] VITALS: BP 111/65
[2022-02-27 06:46] LABS: BASO % 0.2 % (0.0-1.0); EOS # 0.1 10^3/uL (0.0-0.5); EOS % 2.3 % (0.0-3.0); HEMOGLOBIN 11.4 g/dl (13.5-17.5); LYMPH # 1.1 10^3/uL (1.5-5.0); LYMPH % 24.7 % (24.0-44.0); MEAN CORPUSCULAR HEMOGLOBIN 29.8 pg (27.0-33.0); MEAN CORPUSCULAR HGB CONC 31.7 g/dl (32.0-36.5); MONO # 0.4 10^3/uL (0.0-0.8); MONO % 8.6 % (2.0-8.0); NEUTROPHILS # 2.7 10^3/uL (1.5-8.5); NEUTROPHILS % 63.7 % (36.0-66.0); PLATELET COUNT, AUTOMATED 118 10^3/uL (150-450); RED BLOOD COUNT 3.83 10^6/uL (4.30-6.10); WHITE BLOOD COUNT 4.3 10^3/uL (4.0-10.0)
[2022-02-27 06:59] LABS: ALBUMIN 2.2 G/DL (3.2-5.2); BILIRUBIN,TOTAL 0.8 MG/DL (0.3-1.2); CALCIUM LEVEL 7.6 MG/DL (8.3-10.6); CREATININE FOR GFR 2.13 MG/DL (0.70-1.30); GLOMERULAR FILTRATION RATE 31.7 (>35); POTASSIUM SERUM 3.3 MMOL/L (3.5-5.1); TOTAL PROTEIN 5.3 G/DL (5.7-8.2)
[2022-02-27] MEDS ORDERED: POTASSIUM CHLORIDE 10MEQ SR TABLET PO ONE (08:20)
[2022-02-27] MEDS: MULTIVITAMINS/MINERALS THERAP 1 TAB PO SCH (09:45)
[2022-02-27] MEDS: FERROUS SULFATE 325MG TAB PO SCH ×2 (09:45→21:35)
[2022-02-27] MEDS: FIDAXOMICIN 200 MG TAB (DIFICID) PO SCH ×2 (09:45→21:36)
[2022-02-27] MEDS: MIDODRINE 2.5 MG TAB PO SCH ×2 (09:45→17:11)
[2022-02-27] MEDS: HEPARIN SOD (PORCINE) 5000UNITS/ML 1ML VIAL/SYRINGE SQ SCH ×2 (09:46→21:36)
[2022-02-27] MEDS: GLIMEPIRIDE 2 MG TAB PO SCH (09:46)
[2022-02-27] MEDS: ASCORBIC ACID 500 MG TAB PO SCH ×2 (09:46→21:36)
[2022-02-27] MEDS: CYANOCOBALAMIN 500 MCG TAB PO SCH ×2 (09:46→21:36)
[2022-02-27] MEDS: FINASTERIDE 5MG TAB PO SCH (09:46)
[2022-02-27] MEDS: LACTOBACILLUS ACIDOPHILUS CAP (BACID) PO SCH (09:46)
[2022-02-27 14:00] VITALS: BP 105/75
[2022-02-27 20:30] VITALS: BP 100/60
[2022-02-27] MEDS: TAMSULOSIN 0.4 MG CAP PO SCH (21:36)
[2022-02-27] MEDS: SIMVASTATIN 20 MG TAB PO SCH (21:36)
[2022-02-27] MEDS: GLIMEPIRIDE 1 MG TABLET PO SCH (21:37)
[2022-02-27] MEDS: LEVEMIR (INSULIN DETEMIR) 1 UNITS/0.01ML SC SCH (21:37)
[2022-02-28 05:50] VITALS: BP 120/78
[2022-02-28 06:31] LABS: BASO % 0.4 % (0.0-1.0); EOS # 0.1 10^3/uL (0.0-0.5); EOS % 1.7 % (0.0-3.0); HEMATOCRIT 39.6 % (42.0-52.0); HEMOGLOBIN 12.4 g/dl (13.5-17.5); LYMPH # 0.8 10^3/uL (1.5-5.0); MEAN CORPUSCULAR HEMOGLOBIN 29.3 pg (27.0-33.0); MEAN CORPUSCULAR HGB CONC 31.3 g/dl (32.0-36.5); MEAN CORPUSCULAR VOLUME 93.6 fl (80.0-96.0); MONO # 0.4 10^3/uL (0.0-0.8); MONO % 9.4 % (2.0-8.0); NEUTROPHILS # 3.3 10^3/uL (1.5-8.5); NEUTROPHILS % 71.1 % (36.0-66.0); PLATELET COUNT, AUTOMATED 152 10^3/uL (150-450); RED BLOOD COUNT 4.23 10^6/uL (4.30-6.10); WHITE BLOOD COUNT 4.6 10^3/uL (4.0-10.0)
[2022-02-28 06:59] LABS: ALBUMIN 2.2 G/DL (3.2-5.2); BILIRUBIN,TOTAL 0.8 MG/DL (0.3-1.2); CALCIUM LEVEL 8.1 MG/DL (8.3-10.6); CREATININE FOR GFR 2.12 MG/DL (0.70-1.30); GLOMERULAR FILTRATION RATE 31.8 (>35); POTASSIUM SERUM 3.8 MMOL/L (3.5-5.1); TOTAL PROTEIN 5.4 G/DL (5.7-8.2)
[2022-02-28] MEDS: MULTIVITAMINS/MINERALS THERAP 1 TAB PO SCH (09:47)
[2022-02-28] MEDS: FIDAXOMICIN 200 MG TAB (DIFICID) PO SCH ×2 (09:47→21:26)
[2022-02-28] MEDS: MIDODRINE 2.5 MG TAB PO SCH ×2 (09:47→17:48)
[2022-02-28] MEDS: LACTOBACILLUS ACIDOPHILUS CAP (BACID) PO SCH (09:47)
[2022-02-28] MEDS: FINASTERIDE 5MG TAB PO SCH (09:47)
[2022-02-28] MEDS: FERROUS SULFATE 325MG TAB PO SCH ×2 (09:47→21:26)
[2022-02-28] MEDS: CYANOCOBALAMIN 500 MCG TAB PO SCH ×2 (09:47→21:26)
[2022-02-28] MEDS: GLIMEPIRIDE 2 MG TAB PO SCH (09:47)
[2022-02-28] MEDS: ASCORBIC ACID 500 MG TAB PO SCH ×2 (09:47→21:27)
[2022-02-28] MEDS: HEPARIN SOD (PORCINE) 5000UNITS/ML 1ML VIAL/SYRINGE SQ SCH ×2 (09:48→21:27)
[2022-02-28] MEDS: ACETAMINOPHEN TAB 650MG DOSE (2X325MG) PO PRN (10:54)
[2022-02-28] MEDS: oxyCODONE 5MG TAB PO PRN ×2 (13:11→21:28)
[2022-02-28 14:00] VITALS: BP 117/73
[2022-02-28 20:20] VITALS: BP 135/87
[2022-02-28] MEDS: TAMSULOSIN 0.4 MG CAP PO SCH (21:26)
[2022-02-28] MEDS: GLIMEPIRIDE 1 MG TABLET PO SCH (21:26)
[2022-02-28] MEDS: SIMVASTATIN 20 MG TAB PO SCH (21:26)
[2022-02-28] MEDS: LEVEMIR (INSULIN DETEMIR) 1 UNITS/0.01ML SC SCH (21:27)
[2022-03-01] VITALS (7 sets, daily range): BP systolic 112–130; BP diastolic 73–80
[2022-03-01] MEDS ORDERED: PILL CUTTER 1 EACH XX PRN (03:25)
[2022-03-01] MEDS ORDERED: oxyCODONE 5MG TAB PO ONE (03:30)
[2022-03-01 05:56] LABS: BASO % 0.2 % (0.0-1.0); EOS # 0.1 10^3/uL (0.0-0.5); EOS % 2.1 % (0.0-3.0); HEMATOCRIT 40.3 % (42.0-52.0); HEMOGLOBIN 12.5 g/dl (13.5-17.5); LYMPH % 19.8 % (24.0-44.0); MEAN CORPUSCULAR HEMOGLOBIN 29.3 pg (27.0-33.0); MEAN CORPUSCULAR VOLUME 94.4 fl (80.0-96.0); MONO # 0.4 10^3/uL (0.0-0.8); MONO % 8.2 % (2.0-8.0); NEUTROPHILS # 3.7 10^3/uL (1.5-8.5); NEUTROPHILS % 69.5 % (36.0-66.0); PLATELET COUNT, AUTOMATED 141 10^3/uL (150-450); RED BLOOD COUNT 4.27 10^6/uL (4.30-6.10); WHITE BLOOD COUNT 5.3 10^3/uL (4.0-10.0)
[2022-03-01 06:21] LABS: ALBUMIN 2.2 G/DL (3.2-5.2); BILIRUBIN,TOTAL 0.9 MG/DL (0.3-1.2); CALCIUM LEVEL 8.2 MG/DL (8.3-10.6); CREATININE FOR GFR 2.29 MG/DL (0.70-1.30); GLOMERULAR FILTRATION RATE 29.1 (>35); POTASSIUM SERUM 3.8 MMOL/L (3.5-5.1); TOTAL PROTEIN 5.5 G/DL (5.7-8.2)
[2022-03-01] MEDS: GLIMEPIRIDE 2 MG TAB PO SCH (08:44)
[2022-03-01] MEDS: ASCORBIC ACID 500 MG TAB PO SCH ×2 (08:44→21:16)
[2022-03-01] MEDS: LACTOBACILLUS ACIDOPHILUS CAP (BACID) PO SCH (08:44)
[2022-03-01] MEDS: FERROUS SULFATE 325MG TAB PO SCH ×2 (08:44→21:16)
[2022-03-01] MEDS: MIDODRINE 2.5 MG TAB PO SCH ×2 (08:44→16:33)
[2022-03-01] MEDS: MULTIVITAMINS/MINERALS THERAP 1 TAB PO SCH (08:44)
[2022-03-01] MEDS: FINASTERIDE 5MG TAB PO SCH (08:44)
[2022-03-01] MEDS: CYANOCOBALAMIN 500 MCG TAB PO SCH ×2 (08:44→21:16)
[2022-03-01] MEDS: FIDAXOMICIN 200 MG TAB (DIFICID) PO SCH ×2 (08:44→21:14)
[2022-03-01] MEDS: HEPARIN SOD (PORCINE) 5000UNITS/ML 1ML VIAL/SYRINGE SQ SCH ×2 (08:44→21:14)
[2022-03-01] MEDS: oxyCODONE 5MG TAB PO PRN (16:34)
[2022-03-01] MEDS: GLIMEPIRIDE 1 MG TABLET PO SCH (21:14)
[2022-03-01] MEDS: TAMSULOSIN 0.4 MG CAP PO SCH (21:16)
[2022-03-01] MEDS: SIMVASTATIN 20 MG TAB PO SCH (21:16)
[2022-03-01] MEDS: LEVEMIR (INSULIN DETEMIR) 1 UNITS/0.01ML SC SCH (21:16)
[2022-03-02] MEDS: oxyCODONE 5MG TAB PO PRN ×3 (02:01→23:49)
[2022-03-02 06:00] VITALS: BP 127/70
[2022-03-02 06:24] LABS: BASO % 0.2 % (0.0-1.0); EOS # 0.1 10^3/uL (0.0-0.5); EOS % 2.1 % (0.0-3.0); HEMATOCRIT 38.2 % (42.0-52.0); HEMOGLOBIN 12.2 g/dl (13.5-17.5); LYMPH # 1.3 10^3/uL (1.5-5.0); LYMPH % 31.1 % (24.0-44.0); MEAN CORPUSCULAR HEMOGLOBIN 29.8 pg (27.0-33.0); MEAN CORPUSCULAR HGB CONC 31.9 g/dl (32.0-36.5); MEAN CORPUSCULAR VOLUME 93.4 fl (80.0-96.0); MONO # 0.3 10^3/uL (0.0-0.8); MONO % 7.1 % (2.0-8.0); NEUTROPHILS # 2.5 10^3/uL (1.5-8.5); NEUTROPHILS % 59.3 % (36.0-66.0); PLATELET COUNT, AUTOMATED 149 10^3/uL (150-450); RED BLOOD COUNT 4.09 10^6/uL (4.30-6.10); WHITE BLOOD COUNT 4.2 10^3/uL (4.0-10.0)
[2022-03-02 06:59] LABS: ALBUMIN 2.8 G/DL (3.2-5.2); CALCIUM LEVEL 8.5 MG/DL (8.3-10.6); CREATININE FOR GFR 2.11 MG/DL (0.70-1.30); POTASSIUM SERUM 3.4 MMOL/L (3.5-5.1); TOTAL PROTEIN 5.9 G/DL (5.7-8.2)
[2022-03-02] MEDS: MULTIVITAMINS/MINERALS THERAP 1 TAB PO SCH (09:33)
[2022-03-02] MEDS: FIDAXOMICIN 200 MG TAB (DIFICID) PO SCH ×2 (09:33→21:59)
[2022-03-02] MEDS: HEPARIN SOD (PORCINE) 5000UNITS/ML 1ML VIAL/SYRINGE SQ SCH ×2 (09:33→21:59)
[2022-03-02] MEDS: FERROUS SULFATE 325MG TAB PO SCH ×2 (09:33→21:59)
[2022-03-02] MEDS: CYANOCOBALAMIN 500 MCG TAB PO SCH ×2 (09:33→21:59)
[2022-03-02] MEDS: FINASTERIDE 5MG TAB PO SCH (09:33)
[2022-03-02] MEDS: LACTOBACILLUS ACIDOPHILUS CAP (BACID) PO SCH (09:33)
[2022-03-02] MEDS: ASCORBIC ACID 500 MG TAB PO SCH ×2 (09:33→21:59)
[2022-03-02] MEDS: GLIMEPIRIDE 2 MG TAB PO SCH (09:34)
[2022-03-02] MEDS: MIDODRINE 2.5 MG TAB PO SCH ×2 (09:34→16:36)
[2022-03-02 14:00] VITALS: BP 110/67
[2022-03-02 20:24] VITALS: BP 114/69
[2022-03-02] MEDS: TAMSULOSIN 0.4 MG CAP PO SCH (21:59)
[2022-03-02] MEDS: SIMVASTATIN 20 MG TAB PO SCH (21:59)
[2022-03-02] MEDS: GLIMEPIRIDE 1 MG TABLET PO SCH (22:00)
[2022-03-02] MEDS: LEVEMIR (INSULIN DETEMIR) 1 UNITS/0.01ML SC SCH (22:00)
[2022-03-03 04:39] VITALS: BP 111/69
[2022-03-03 05:48] LABS: BASO % 0.3 % (0.0-1.0); EOS # 0.1 10^3/uL (0.0-0.5); HEMATOCRIT 40.2 % (42.0-52.0); HEMOGLOBIN 12.8 g/dl (13.5-17.5); LYMPH # 0.8 10^3/uL (1.5-5.0); LYMPH % 18.8 % (24.0-44.0); MEAN CORPUSCULAR HEMOGLOBIN 29.4 pg (27.0-33.0); MEAN CORPUSCULAR HGB CONC 31.8 g/dl (32.0-36.5); MEAN CORPUSCULAR VOLUME 92.2 fl (80.0-96.0); MONO # 0.3 10^3/uL (0.0-0.8); MONO % 7.3 % (2.0-8.0); NEUTROPHILS # 2.8 10^3/uL (1.5-8.5); NEUTROPHILS % 71.3 % (36.0-66.0); PLATELET COUNT, AUTOMATED 139 10^3/uL (150-450); RED BLOOD COUNT 4.36 10^6/uL (4.30-6.10)
[2022-03-03] MEDS ORDERED: HEPARIN SOD (PORCINE) 5000UNITS/ML 1ML VIAL/SYRINGE PD ONE (06:00)
[2022-03-03 06:21] LABS: ALBUMIN 2.7 G/DL (3.2-5.2); CALCIUM LEVEL 8.6 MG/DL (8.3-10.6); CREATININE FOR GFR 2.2 MG/DL (0.70-1.30); GLOMERULAR FILTRATION RATE 30.5 (>35); POTASSIUM SERUM 3.7 MMOL/L (3.5-5.1); TOTAL PROTEIN 5.8 G/DL (5.7-8.2)
[2022-03-03] MEDS: ASCORBIC ACID 500 MG TAB PO SCH ×2 (09:10→20:26)
[2022-03-03] MEDS: FERROUS SULFATE 325MG TAB PO SCH ×2 (09:10→20:26)
[2022-03-03] MEDS: CYANOCOBALAMIN 500 MCG TAB PO SCH ×2 (09:10→20:26)
[2022-03-03] MEDS: GLIMEPIRIDE 2 MG TAB PO SCH (09:10)
[2022-03-03] MEDS: MIDODRINE 2.5 MG TAB PO SCH ×2 (09:10→16:10)
[2022-03-03] MEDS: FINASTERIDE 5MG TAB PO SCH (09:10)
[2022-03-03] MEDS: MULTIVITAMINS/MINERALS THERAP 1 TAB PO SCH (09:10)
[2022-03-03] MEDS: FIDAXOMICIN 200 MG TAB (DIFICID) PO SCH ×2 (09:10→20:26)
[2022-03-03] MEDS: ESCITALOPRAM OXALATE 5MG TABLET (LEXAPRO) PO SCH (09:10)
[2022-03-03] MEDS: LACTOBACILLUS ACIDOPHILUS CAP (BACID) PO SCH (09:10)
[2022-03-03] MEDS: HEPARIN SOD (PORCINE) 5000UNITS/ML 1ML VIAL/SYRINGE SQ SCH ×2 (09:11→21:12)
[2022-03-03] MEDS: oxyCODONE 5MG TAB PO PRN ×2 (09:56→21:11)
[2022-03-03] MEDS ORDERED: FIDA200TA PO (13:00)
[2022-03-03] MEDS ORDERED: MIDO2.5T PO (13:00)
[2022-03-03] MEDS ORDERED: FLOM0.4C39 PO (13:00)
[2022-03-03] MEDS ORDERED: LEXA5TAB13 PO (13:00)
[2022-03-03 14:00] VITALS: BP 108/69
[2022-03-03] MEDS: SIMVASTATIN 20 MG TAB PO SCH (20:26)
[2022-03-03] MEDS: TAMSULOSIN 0.4 MG CAP PO SCH (20:26)
[2022-03-03] MEDS: LEVEMIR (INSULIN DETEMIR) 1 UNITS/0.01ML SC SCH (20:27)
[2022-03-03] MEDS: GLIMEPIRIDE 1 MG TABLET PO SCH (20:29)
[2022-03-04 05:22] VITALS: BP 96/68
[2022-03-04] MEDS: LACTOBACILLUS ACIDOPHILUS CAP (BACID) PO SCH (09:11)
[2022-03-04] MEDS: GLIMEPIRIDE 2 MG TAB PO SCH (09:11)
[2022-03-04] MEDS: MIDODRINE 2.5 MG TAB PO SCH (09:11)
[2022-03-04] MEDS: HEPARIN SOD (PORCINE) 5000UNITS/ML 1ML VIAL/SYRINGE SQ SCH (09:11)
[2022-03-04] MEDS: FINASTERIDE 5MG TAB PO SCH (09:11)
[2022-03-04] MEDS: ESCITALOPRAM OXALATE 5MG TABLET (LEXAPRO) PO SCH (09:11)
[2022-03-04] MEDS: MULTIVITAMINS/MINERALS THERAP 1 TAB PO SCH (09:11)
[2022-03-04] MEDS: FERROUS SULFATE 325MG TAB PO SCH (09:11)
[2022-03-04] MEDS: FIDAXOMICIN 200 MG TAB (DIFICID) PO SCH (09:11)
[2022-03-04] MEDS: CYANOCOBALAMIN 500 MCG TAB PO SCH (09:11)
[2022-03-04] MEDS: ASCORBIC ACID 500 MG TAB PO SCH (09:11)
[2022-03-04] MEDS: oxyCODONE 5MG TAB PO PRN (11:21)
[2022-03-04] MEDS ORDERED: MIDODRINE 5 MG TAB PO SCH (12:00)
[2022-03-04] MEDS ORDERED: MIDODRINE 5 MG TAB PO ONE (12:30)
== END 2022-03-04 13:21 | disposition home health service (06) | DRG 432 ==
LOC: M ED 10:31 → M ED INP 17:45 → M MSPAV 23:41
PROVIDERS: ADMIT Family Medicine; ATTEND General Practice
PROC: 30233J1 Transfusion of Nonautologous Serum Albumin into Peripheral Vein, Percutaneous Approach (ICD-10-PCS; 2022-02-16)
PROC: 0W9G3ZX Drainage of Peritoneal Cavity, Percutaneous Approach, Diagnostic (ICD-10-PCS; principal; 2022-02-16 12:00)
PROC: 0W9G3ZZ Drainage of Peritoneal Cavity, Percutaneous Approach (ICD-10-PCS; 2022-02-18)
PROC: 0W9G3ZZ Drainage of Peritoneal Cavity, Percutaneous Approach (ICD-10-PCS; 2022-02-22)
DX: K70.31 Alcoholic cirrhosis of liver with ascites (principal); K76.7 Hepatorenal syndrome; A04.72 Enterocolitis due to Clostridium difficile, not specified as recurrent; N17.9 Acute kidney failure, unspecified; E87.20 Acidosis, unspecified; I85.00 Esophageal varices without bleeding; K76.6 Portal hypertension; Z66 Do not resuscitate; E11.22 Type 2 diabetes mellitus with diabetic chronic kidney disease; D63.8 Anemia in other chronic diseases classified elsewhere; N18.9 Chronic kidney disease, unspecified; I12.9 Hypertensive chronic kidney disease with stage 1 through stage 4 chronic kidney disease, or unspecified chronic kidney disease; E78.5 Hyperlipidemia, unspecified; R19.7 Diarrhea, unspecified; N40.0 Benign prostatic hyperplasia without lower urinary tract symptoms; Z20.822 Contact with and (suspected) exposure to COVID-19; Z79.84 Long term (current) use of oral hypoglycemic drugs; Z79.899 Other long term (current) drug therapy; Z88.5 Allergy status to narcotic agent; R60.1 Generalized edema; I95.9 Hypotension, unspecified; R26.89 Other abnormalities of gait and mobility

== ENCOUNTER 2022-03-04 13:34 | Outpatient (CLI) | payer MEDICARE ==
[~2022-03-04] VITALS: Ht 170.2 cm; Wt 89.2 kg
[~2022-03-04 13:34] MED LIST changes: +DIFI200T PO; +FIDA200TA PO; +FLOM0.4C39 PO; +JARD1TAB PO; +LEXA5TAB13 PO; +MIDO2.5T PO; +TOUJ1.2I SC; +VANC1CAP6 PO
[2022-03-04 13:45] VITALS: BP 98/57
[2022-03-04 15:50] VITALS: BP 105/68
[2022-03-04] MEDS ORDERED: BEZLOTOXUMAB in NS 100 ML OVER 1 HR IV ONE (16:30)
== END 2022-03-04 15:50 | disposition home or self-care (01) ==
LOC: M INFU 13:34
PROVIDERS: ATTEND Internal Medicine Infectious Disease
DX: A04.72 Enterocolitis due to Clostridium difficile, not specified as recurrent (principal); Z88.5 Allergy status to narcotic agent
CPT/HCPCS: 96365; J0565

== ENCOUNTER → 2022-03-08 | Outpatient (CLI) | payer MEDICARE ==
[~2022-03-08] MED LIST changes: +LIDOCAINE 1% MDV 20ML VIAL As Ordered ONE
[2022-03-08 11:22] VITALS: BP 110/68
== END ==
LOC: M IRPRO 10:17
PROVIDERS: ATTEND General Practice
DX: K70.31 Alcoholic cirrhosis of liver with ascites (principal)

== ENCOUNTER → 2022-03-15 | Outpatient (CLI) | payer MEDICARE ==
[~2022-03-15] MED LIST changes: +MIDO5TA PO
[2022-03-15 09:14] VITALS: BP 126/84
[2022-03-15 09:40] VITALS: BP 116/72
[2022-03-15 10:03] VITALS: BP 125/74
[2022-03-15 10:09] VITALS: BP 134/76
[2022-03-15 10:17] VITALS: BP 128/74
== END ==
LOC: M IRPRO 08:39
PROVIDERS: ATTEND Family Medicine
DX: R18.8 Other ascites (principal)
CPT/HCPCS: 49083; 96365; G0463; P9047

== ENCOUNTER 2022-03-21 16:05 | Inpatient (IN) | payer MEDICARE ==
[~2022-03-21] VITALS: Ht 170.2 cm; Wt 66.8 kg
[~2022-03-21 16:05] MED LIST changes: -LIDOCAINE 1% MDV 20ML VIAL As Ordered ONE; -MIDO5TA PO
[2022-03-21] MEDS ORDERED: NS 500 ML IV ONE (16:55)
[2022-03-21] MEDS ORDERED: NS 1,000 ML IV SCH (16:55)
[2022-03-21] MEDS ORDERED: ONDANSETRON 4MG 2ML VIAL IV ONE (16:55)
[2022-03-21 17:50] LABS: EOS % 0.1 % (0.0-3.0); HEMATOCRIT 43.5 % (42.0-52.0); LYMPH # 0.2 10^3/uL (1.5-5.0); LYMPH % 2.2 % (24.0-44.0); MEAN CORPUSCULAR HEMOGLOBIN 29.4 pg (27.0-33.0); MEAN CORPUSCULAR HGB CONC 32.2 g/dl (32.0-36.5); MEAN CORPUSCULAR VOLUME 91.4 fl (80.0-96.0); MONO # 0.2 10^3/uL (0.0-0.8); MONO % 2.6 % (2.0-8.0); NEUTROPHILS # 7.4 10^3/uL (1.5-8.5); NEUTROPHILS % 94.3 % (36.0-66.0); PLATELET COUNT, AUTOMATED 114 10^3/uL (150-450); RED BLOOD COUNT 4.76 10^6/uL (4.30-6.10); WHITE BLOOD COUNT 7.8 10^3/uL (4.0-10.0)
[2022-03-21 18:21] LABS: LIPASE 112 U/L (12-53)
[2022-03-21 18:24] LABS: BILIRUBIN,DIRECT 1.2 MG/DL (<0.4); CK-MB VALUE MASS < 1.0 NG/ML (<3.6); CPK CREATINE PHOSPHOKINASE 44 U/L (46-171); MB/CK RELATIVE INDEX 2.27 (< OR =4)
[2022-03-21 18:28] LABS: RSV AMPLIFICATION NEGATIVE (NEGATIVE)
[2022-03-21 18:36] LABS: ALBUMIN 3.1 G/DL (3.2-5.2); ALKALINE PHOSPHATASE 655 U/L (46-116); ALT/SGPT 148 U/L (7.0-40); AST/SGOT 166 U/L (<34); BILIRUBIN,TOTAL 1.9 MG/DL (0.3-1.2); BLOOD UREA NITROGEN 161 MG/DL (9-23); CARBON DIOXIDE LEVEL 14 MMOL/L (20-31); CHLORIDE LEVEL 100 MMOL/L (98-107); CREATININE FOR GFR 5.62 MG/DL (0.70-1.30); GLOMERULAR FILTRATION RATE 10.3 (>35); GLUCOSE, FASTING 360 MG/DL (74-106); POTASSIUM SERUM 4.5 MMOL/L (3.5-5.1); SODIUM LEVEL 139 MMOL/L (136-145); TOTAL PROTEIN 6.3 G/DL (5.7-8.2)
[2022-03-21 18:53] LABS: CK-MB VALUE MASS < 1.0 NG/ML (<3.6)
[2022-03-21 18:54] LABS: CPK CREATINE PHOSPHOKINASE 42 U/L (46-171); MB/CK RELATIVE INDEX 2.38 (< OR =4)
[2022-03-21] MEDS ORDERED: SODIUM BICARBONATE 150 MEQ in STERILE WATER LITER BAG 1,000 ML IV SCH (18:55)
[2022-03-21 19:43] LABS: INR 1.44; PROTHROMBIN TIME 17.8 SECONDS (12.5-14.5)
[2022-03-21] MEDS ORDERED: LEXA5TAB13 PO (19:49)
[2022-03-21] MEDS ORDERED: FLOM0.4C39 PO (19:49)
[2022-03-21] MEDS ORDERED: MIDO5TA PO (19:49)
[2022-03-21] MEDS ORDERED: HOME MED LIST COMPLETE! XX SCH (19:50)
[2022-03-21] MEDS ORDERED: GLUCAGON INJ 1MG VIAL SC PRN (20:10)
[2022-03-21] MEDS ORDERED: DEXTROSE 50% 50ML SYRINGE IV PRN (20:10)
[2022-03-21] MEDS ORDERED: GLUCOSE 4GM CHEW TABLET PO PRN (20:10)
[2022-03-21] MEDS ORDERED: INSULIN LISPRO (NovoLOG) PER UNIT SC SCH (21:00)
[2022-03-21] MEDS ORDERED: LEVEMIR (INSULIN DETEMIR) 1 UNITS/0.01ML SC SCH (21:00)
[2022-03-21] MEDS ORDERED: TERAZOSIN 5MG CAPSULE PO SCH (21:00)
[2022-03-21] MEDS ORDERED: SIMVASTATIN 20 MG TAB PO SCH (21:00)
[2022-03-21 22:00] LABS: VENOUS PH 7.336 UNITS (7.330-7.430)
[2022-03-21 22:01] LABS: VENOUS BASE EXCESS -9.8 (-2.0-2.0); VENOUS HCO3 14.4 MEQ/L (23.0-27.0); VENOUS O2 SATURATION 95.8 % (60.0-80.0); VENOUS PARTIAL PRESSURE CO2 27.5 mmHg (38.0-50.0); VENOUS PARTIAL PRESSURE O2 90.3 mmHg (30.0-50.0); VENOUS STANDARD HCO3 16.7 MEQ/L; VENOUS TOTAL CO2 15.2 MEQ/L (24.0-28.0)
[2022-03-21 22:30] VITALS: BP 118/66
[2022-03-21] MEDS: TAMSULOSIN 0.4 MG CAP PO SCH (22:54)
[2022-03-21 23:15] VITALS: O2SAT 95
[2022-03-22] MEDS: rifAXIMin 550 MG TAB (XIFAXAN) PO SCH ×3 (00:32→19:48)
[2022-03-22] MEDS: METOCLOPRAMIDE INJ 10MG/2ML VIAL IV PRN ×2 (02:01→14:28)
[2022-03-22] MEDS: FIDAXOMICIN 200 MG TAB (DIFICID) PO SCH ×2 (04:29→19:48)
[2022-03-22 04:35] VITALS: BP 90/56
[2022-03-22] MEDS ORDERED: SODIUM BICARBONATE 150 MEQ in STERILE WATER LITER BAG 1,000 ML IV SCH (05:30)
[2022-03-22 06:12] LABS: HEMATOCRIT 39.1 % (42.0-52.0); HEMOGLOBIN 13.1 g/dl (13.5-17.5); MEAN CORPUSCULAR HEMOGLOBIN 29.5 pg (27.0-33.0); MEAN CORPUSCULAR HGB CONC 33.5 g/dl (32.0-36.5); MEAN CORPUSCULAR VOLUME 88.1 fl (80.0-96.0); PLATELET COUNT, AUTOMATED 111 10^3/uL (150-450); RED BLOOD COUNT 4.44 10^6/uL (4.30-6.10); WHITE BLOOD COUNT 7.8 10^3/uL (4.0-10.0)
[2022-03-22 06:43] LABS: PHOSPHORUS LEVEL 6.3 MG/DL (2.4-5.1)
[2022-03-22 06:52] LABS: CALCIUM LEVEL 8.3 MG/DL (8.3-10.6); CREATININE FOR GFR 5.24 MG/DL (0.70-1.30); GLOMERULAR FILTRATION RATE 11.2 (>35); POTASSIUM SERUM 3.6 MMOL/L (3.5-5.1)
[2022-03-22] MEDS ORDERED: INSULIN LISPRO (NovoLOG) PER UNIT SC SCH (07:30)
[2022-03-22] MEDS ORDERED: MIDODRINE 5 MG TAB PO SCH (08:00)
[2022-03-22 08:11] VITALS: BP 115/75
[2022-03-22 08:15] LABS: ALBUMIN 2.8 G/DL (3.2-5.2); BILIRUBIN,TOTAL 1.6 MG/DL (0.3-1.2); TOTAL PROTEIN 5.9 G/DL (5.7-8.2)
[2022-03-22] MEDS ORDERED: FINASTERIDE 5MG TAB PO SCH (09:00)
[2022-03-22] MEDS ORDERED: ESCITALOPRAM OXALATE 5MG TABLET (LEXAPRO) PO SCH (09:00)
[2022-03-22] MEDS: MIDODRINE 5 MG TAB PO SCH ×2 (12:00→15:58)
[2022-03-22] MEDS: INSULIN LISPRO (NovoLOG) PER UNIT SC SCH ×2 (12:00→18:00)
[2022-03-22] MEDS: SODIUM BICARBONATE 50 MEQ in NS 0.45% 1,000 ML IV SCH ×2 (13:59→21:36)
[2022-03-22] MEDS: OCTREOTIDE ACETATE 100MCG/ML VIAL **SC ADMINISTRATION ONLY SC SCH ×2 (13:59→21:36)
[2022-03-22 14:31] VITALS: BP 106/78
[2022-03-22 16:53] VITALS: O2SAT 96
[2022-03-22] MEDS: TAMSULOSIN 0.4 MG CAP PO SCH (19:48)
[2022-03-22 21:00] VITALS: O2SAT 95
[2022-03-22 22:00] VITALS: BP 107/69
[2022-03-23] MEDS: SODIUM BICARBONATE 50 MEQ in NS 0.45% 1,000 ML IV SCH (05:18)
[2022-03-23] MEDS: OCTREOTIDE ACETATE 100MCG/ML VIAL **SC ADMINISTRATION ONLY SC SCH ×2 (05:18→14:00)
[2022-03-23 05:21] VITALS: BP 107/70
[2022-03-23] MEDS: INSULIN LISPRO (NovoLOG) PER UNIT SC SCH ×3 (06:00→12:00)
[2022-03-23 06:47] LABS: CALCIUM LEVEL 8.1 MG/DL (8.3-10.6); CREATININE FOR GFR 5.02 MG/DL (0.70-1.30); GLOMERULAR FILTRATION RATE 11.8 (>35); POTASSIUM SERUM 3.3 MMOL/L (3.5-5.1)
[2022-03-23] MEDS: FIDAXOMICIN 200 MG TAB (DIFICID) PO SCH (08:36)
[2022-03-23] MEDS: MIDODRINE 5 MG TAB PO SCH ×3 (08:36→16:00)
[2022-03-23] MEDS: rifAXIMin 550 MG TAB (XIFAXAN) PO SCH (08:36)
[2022-03-23 09:00] VITALS: O2SAT 96
[2022-03-23] MEDS ORDERED: NS 0.45% IV SCH (15:00)
[2022-03-23] MEDS ORDERED: SODIUM BICARBONATE IV SCH (15:00)
[2022-03-23] MEDS ORDERED: POTASSIUM CHLORIDE IV SCH (15:00)
[2022-03-23] MEDS ORDERED: HYOSCYAMINE SULFATE 0.125 MG SUBL TABLET PO PRN (17:10)
[2022-03-23] MEDS ORDERED: LORazepam 2 MG/ML VIAL IV PRN (17:10)
[2022-03-23] MEDS ORDERED: MORPHINE 2 MG/ML 1ML VIAL IV PRN (17:10)
[2022-03-25] MEDS: MORPHINE 10MG/0.5ML ORAL CONCENTRATE SOLUTION U/D SL PRN (03:00)
[2022-03-25] MEDS ORDERED: LORazepam 2 MG/ML VIAL SL PRN (10:15)
[2022-03-25] MEDS: LORazepam 1 MG TAB PO PRN ×2 (16:55→18:58)
[2022-03-25] MEDS ORDERED: ONDANSETRON 4MG ORAL DISINTEGRATING TAB SL PRN (18:15)
[2022-03-26] MEDS: MORPHINE 10MG/0.5ML ORAL CONCENTRATE SOLUTION U/D SL PRN (10:54)
[2022-03-26] MEDS: LORazepam 1 MG TAB PO PRN ×2 (11:58→17:39)
[2022-03-27] MEDS: MORPHINE 10MG/0.5ML ORAL CONCENTRATE SOLUTION U/D SL PRN (07:38)
[2022-03-27] MEDS: LORazepam 1 MG TAB PO PRN (07:38)
[2022-03-28] MEDS: MORPHINE 10MG/0.5ML ORAL CONCENTRATE SOLUTION U/D SL PRN (15:41)
[2022-03-28] MEDS: LORazepam 1 MG TAB PO PRN (15:41)
[2022-03-29] MEDS: MORPHINE 10MG/0.5ML ORAL CONCENTRATE SOLUTION U/D SL PRN ×3 (05:57→13:39)
== END 2022-03-29 13:50 | disposition expired | DRG 371 ==
LOC: M ED 16:05 → M ED INP 20:29 → ENRESERV 21:55 → M MS5PR 23:15
PROVIDERS: ADMIT Internal Medicine; ATTEND Family Medicine
DX: A04.71 Enterocolitis due to Clostridium difficile, recurrent (principal); K76.7 Hepatorenal syndrome; G93.41 Metabolic encephalopathy; N17.9 Acute kidney failure, unspecified; E87.4 Mixed disorder of acid-base balance; K76.6 Portal hypertension; I85.10 Secondary esophageal varices without bleeding; N18.4 Chronic kidney disease, stage 4 (severe); M87.9 Osteonecrosis, unspecified; E11.22 Type 2 diabetes mellitus with diabetic chronic kidney disease; Z51.5 Encounter for palliative care; Z66 Do not resuscitate; K70.31 Alcoholic cirrhosis of liver with ascites; Z96.642 Presence of left artificial hip joint; K76.82 Hepatic encephalopathy; D69.6 Thrombocytopenia, unspecified; D64.9 Anemia, unspecified; I25.10 Atherosclerotic heart disease of native coronary artery without angina pectoris; R74.01 Elevation of levels of liver transaminase levels; I12.9 Hypertensive chronic kidney disease with stage 1 through stage 4 chronic kidney disease, or unspecified chronic kidney disease; R11.2 Nausea with vomiting, unspecified; I95.89 Other hypotension; R13.10 Dysphagia, unspecified; N40.0 Benign prostatic hyperplasia without lower urinary tract symptoms; R53.81 Other malaise; R53.1 Weakness; R26.89 Other abnormalities of gait and mobility; K42.9 Umbilical hernia without obstruction or gangrene; E86.0 Dehydration; E78.00 Pure hypercholesterolemia, unspecified; Z79.4 Long term (current) use of insulin; Z79.899 Other long term (current) drug therapy; Z88.5 Allergy status to narcotic agent